=== PATIENT | female | born 1990 | race African-American/Black ===

== ENCOUNTER 2020-05-26 11:09 | Emergency (ER) | payer OTHER, SELFPAY ==
[2020-05-26 11:17] VITALS: BP 150/89; PULSE 92; RESP 16; TEMP 36.3; O2SAT 100
--- NOTE | 2020-05-26 11:30 | ED.DENTAL ---
HPI - Dental/Oral General Chief complaint: Dental/Oral Stated complaint: dental pain Time Seen by Provider: 05/26/20 11:19 Source: patient Mode of arrival: ambulatory Limitations: no limitations History of Present Illness HPI Narrative: This is a 29-year-old female that presents the emergency department for tooth pain x1 week. Reports lower molars on both sides that have been painful. Reports she does have an appointment to see a dentist but it is not until June 06. Denies fever, dysphagia, or dyspnea. MD Complaint: tooth pain Location: Tooth # (18 and 31) Related Data Allergies Allergy/AdvReac Type Severity Reaction Status Date / Time ciprofloxacin Allergy Unknown Hives Verified 05/26/20 11:21 Review of Systems Review of Systems: Narrative: CONSTITUTIONAL: Denies fever ENT: Reports dentalgia All systems reviewed & are unremarkable except as noted in HPI and below PMFSH Past Medical History Medical History (Updated 05/26/20 @ 11:33 by Patricia Fernández PA-C) Lupus Surgical History Surgical History (Updated 08/02/19 @ 16:47 by Shanta Cantu) No pertinent past surgical history Social History Social History (Updated 08/02/19 @ 16:47 by Shanta Cantu) Smoking status: Current every day smoker Alcohol intake: never Substance use: never Gender identity (if verbalized by the patient): Female Exam Narrative: Exam Narrative: GENERAL: Well-appearing, well-nourished, and in no acute distress. HEAD: Normocephalic, atraumatic. EYES: EOMI. ENT: Mucous membranes moist. Oropharynx without tonsillar hypertrophy exudate or other lesions. Bilateral TMs pearly bonilla non-bulging. Poor dentition. Tooth #18 and 31 tender to palpation with mild surrounding erythema and edema. No fluctuance to suggest abscess. NECK: Supple. No adenopathy or masses. CHEST: Clear to auscultation. No respiratory distress. No wheezes rales or rhonchi HEART: Regular rate and rhythm. No murmur heard. Normal peripheral pulses. EXTREMITIES: Normal range of motion. No edema. SKIN: Warm, dry, no rash. NEURO: No focal deficits. Alert and oriented x3. PSYCH: Normal mood and affect Course Vital Signs Vital signs: Vital Signs Temperature 97.4 F L 05/26/20 11:17 Pulse Rate 92 05/26/20 11:17 Respiratory Rate 16 05/26/20 11:17 Blood Pressure 150/89 H 05/26/20 11:17 Pulse Oximetry 100 05/26/20 11:17 Temperature 97.4 F L 05/26/20 11:17 Pulse Rate 92 05/26/20 11:17 Respiratory Rate 16 05/26/20 11:17 Blood Pressure 150/89 H 05/26/20 11:17 Pulse Oximetry 100 05/26/20 11:17 MDM - Dental/Oral MDM Narrative Medical decision making narrative: Patient presents to the emergency department for dental pain. She is afebrile and nontoxic-appearing. Mild redness and swelling surrounding the teeth, but no area of fluctuance to suggest abscess. Patient will be started on oral antibiotics. She is to follow-up with her dentist at her scheduled appointment. She was given warnings to return to the ER Critical Care Time Critical Care Time Critical Care Time: No Discharge Plan Discharge Clinical Impression: Toothache Patient Disposition: Home, Self-Care Condition: Stable Instructions: Antibiotic Form, Toothache (ED) Additional Instructions: Return to the Emergency Department if you experience fever >101, increasing swelling and redness of your tooth, or any other symptoms that are concerning to you Take antibiotic as prescribed. Tylenol or Ibuprofen as needed for pain. You can apply a dab of clove oil to a Qtip and apply to the tooth to help numb the area Follow up with your dentist Prescriptions: New amoxicillin-pot clavulanate 875-125 mg tablet 1 tablet PO Q12H 7 Days Qty: 14 RF: 0 Follow-up/Referrals: PHYSICIAN,[employer] INSPECTOR [Primary Care Provider] -
== END 2020-05-26 11:42 | disposition home or self-care (01) ==
PROVIDERS: Emergency Provider Emergency Medicine
DX: K08.89 Other specified disorders of teeth and supporting structures (principal); F17.200 Nicotine dependence, unspecified, uncomplicated
CPT/HCPCS: 99283

== ENCOUNTER 2021-02-12 05:34 | Observation (INO) | payer OTHER, SELFPAY ==
[2021-02-12] VITALS (12 sets, daily range): BP systolic 121–141; BP diastolic 51–90; PULSE 71–92; RESP 13–22; TEMP 36.3–37.1; O2SAT 98–100; BMI 25.2
--- NOTE | ~2021-02-12 | US_ITS ---
EXAMINATION: US pelvic complete w TV EXAM DATE: 02/13/2021 15:01 INDICATION: Abdominal, pelvic pain. Possible pelvic inflammatory disease. TECHNIQUE: Pelvic transabdominal and transvaginal sonogram was performed. There are multiple graysca le and Doppler images available for interpretation. Correlation is made to CT abdomen pelvis . FINDINGS: Uterus measures 6.8 x 4.0 x 4.2 cm, and is morphologically normal. Endometrial stripe zeeshan sures 4 mm, within normal limits. There is trace free pelvic fluid. Right adnexa: The ovary measures 3.8 x 1.6 x 1.6 cm and is morphologically normal. Ovarian vascular f low confirmed. Left adnexa: The ovary measures 3.4 x 1.6 x 1.9 cm and is morphologically normal. Ovarian vascular fl ow confirmed. IMPRESSION: 1. Unremarkable pelvic ultrasound exam. Reviewed, dictated and finalized at location A.
--- NOTE | ~2021-02-12 | CT_ITS ---
EXAMINATION: CT abdomen pelvis w con INDICATION: Abdominal pain TECHNIQUE: Computed tomographic images of the abdomen and pelvis were obtained after the administrati on of 100 cc of Omnipaque 350 intravenous contrast. The dose-length product (DLP) was 254.67 mGy-cm. Automated exposure control and iterative reconstruction technique were employed. COMPARISON: None available FINDINGS: The lung bases are clear. The heart size is normal. The liver, spleen, pancreas, gallbladde r, and adrenal glands are normal. The right kidney is unremarkable. There is 3 mm cyst of the left ki dney. No pathologically enlarged abdominal or pelvic lymph nodes are identified. There is no free int raperitoneal gas or evidence of bowel obstruction. The appendix is normal. IMPRESSION: 1. No CT correlate for the patient's symptoms. Reviewed, dictated and finalized at location A.
--- NOTE | 2021-02-12 05:57 | ED.GENADULT ---
HPI - General Adult General Chief complaint: Abdominal Pain <Preet Whitehead MD - Last Filed: 02/12/21 06:54> Stated complaint: N/v <Preet Whitehead MD - Last Filed: 02/12/21 06:54> Time Seen by Provider: 02/12/21 05:45 <Preet Whitehead MD - Last Filed: 02/12/21 06:54> History of Present Illness HPI narrative: Patient 30-year-old female presents the emergency department with chief complaint of abdominal pain. The patient reports that she had sudden onset pain throughout her abdomen reports that is not improved by anything reports she has had some nausea and vomiting describes the discomfort as a cramping-like sensation. Patient reports no prior surgical history to the abdomen reports that she has irregular periods and is currently on progesterone to help regulate her periods. <Preet Whitehead MD - Last Filed: 02/12/21 06:54> Related Data Home medications: Home Medications Medication Instructions Recorded Confirmed bupropion HCl mg PO 02/12/21 <Preet Whitehead MD - Last Filed: 02/12/21 06:54> Allergies/adverse reactions: Allergies Allergy/AdvReac Type Severity Reaction Status Date / Time ciprofloxacin Allergy Unknown Hives Verified 02/12/21 05:48 <Preet Whitehead MD - Last Filed: 02/12/21 06:54> Review of Systems Review of Systems: Narrative: A 10 system review of systems was completed on the patient and is negative except for what is stated in the HPI. Nursing and ancillary documentation was reviewed. <Preet Whitehead MD - Last Filed: 02/12/21 06:54> PMFSH Past Medical History Medical History: Medical History Lupus <Preet Whitehead MD - Last Filed: 02/12/21 06:54> Surgical History Surgical History: Surgical History No pertinent past surgical history <Preet Whitehead MD - Last Filed: 02/12/21 06:54> Social History Social History: Social History Smoking status: Current every day smoker Alcohol intake: never Substance use: never Gender identity (if verbalized by the patient): Female <Preet Whitehead MD - Last Filed: 02/12/21 06:54> Exam Narrative: Exam Narrative: GENERAL: Well-appearing, well-nourished, and in no acute distress. HEAD: Normocephalic, atraumatic. EYES: PERRLA and EOMI. ENT: Nares clear, no rhinorrhea or epistaxis. Mucous membranes moist. NECK: Supple. CHEST: Clear to auscultation. No respiratory distress. HEART: Regular rate and rhythm. No murmur heard. Normal peripheral pulses. ABDOMEN: Soft, diffusely tender to palpation, nondistended, normal active bowel sounds. EXTREMITIES: Normal range of motion. No edema. SKIN: Warm, dry, no rash. NEURO: No focal deficits. Alert and oriented x3. PSYCH: Normal mood and affect. <Preet Whitehead MD - Last Filed: 02/12/21 06:54> : External Female Exam: normal external appearance <Umesh Valladares MD - Last Filed: 02/12/21 12:12> Speculum Exam - Vagina: abnormal vaginal discharge (Thick and stringy bonilla/white) <Umesh Valladares MD - Last Filed: 02/12/21 12:12> Speculum Exam - Cervix: Abnormal cervical discharge present and nontender <Umesh Valladares MD - Last Filed: 02/12/21 12:12> Course Vital Signs Vital signs: Vital Signs Temperature 36.3 C L 02/12/21 05:39 Pulse Rate 92 02/12/21 05:39 Respiratory Rate 22 H 02/12/21 05:39 Blood Pressure 125/86 02/12/21 05:39 Pulse Oximetry 98 02/12/21 05:39 Temperature 36.3 C L 02/12/21 05:39 Pulse Rate 77 02/12/21 11:37 Respiratory Rate 17 02/12/21 11:37 Blood Pressure 128/76 02/12/21 11:37 Pulse Oximetry 99 02/12/21 11:37 <Preet Whitehead MD - Last Filed: 02/12/21 06:54> Vital Signs
[2021-02-12] MEDS: SODIUM CHLORIDE 0.9% IV 1,000 ML 999 ML IV CONT (06:08)
[2021-02-12] MEDS: ONDANSETRON INJ 4 MG/2 ML VIAL IV PUSH ×3 (06:08→16:09)
[2021-02-12] MEDS: MORPHINE SULFATE (*CRX) 4 MG/ML INJ IV PUSH (06:09)
[2021-02-12 06:21] LABS: Basophils Percent Auto 0.1 % (0.2-1.2); Eosinophils Absolute Auto 0.2 K/mm3 (0-0.3); Eosinophils Percent Auto 2.1 % (0-4.4); Hematocrit 42.7 % (37.0-47.0); Hemoglobin 14.6 g/dL (12.0-15.0); Immature Granulocyte Absolute 0.02 K/mm3 (0.00-0.031); Immature Granulocyte Percent A 0.3 % (0-0.5); Lymphocytes Absolute Auto 1.68 K/mm3 (0.9-3.2); Lymphocytes Percent Auto 22.3 % (18.3-44.2); Mean Corpuscular HGB Conc 34.2 g/dl (32-36); Mean Corpuscular Hemoglobin 30.8 pg (26-34); Mean Corpuscular Volume 90.1 fl (80-100); Mean Platelet Volume 9.2 fl (7.4-10.4); Monocytes Absolute Auto 0.4 K/mm3 (0.1-0.6); Monocytes Percent Auto 5.3 % (2.6-8.5); Neutrophils Absolute Auto 5.3 K/mm3 (1.3-6.7); Neutrophils Percent Auto 69.9 % (45.5-73.1); Platelet Count Result 281 k/mm3 (150-375); Red Blood Count 4.74 M/mm3 (4.2-5.4); Red Cell Distribution Width 12.6 % (11.5-14.5); White Blood Count 7.6 K/mm3 (4.5-10.0)
[2021-02-12 06:26] LABS: Add Urine Microscopic? YES; Appearance Urine Cloudy (Clear); Bacteria Urine 2+ /hpf; Bilirubin Urine Negative (Negative); Blood Urine Negative (Negative); Color Urine Yellow (Yellow); Glucose Urine UA Negative (Negative); Ketones Urine Negative (Negative); Leukocyte Esterase Ur Trace LEU/UL (Negative); Mucus Urine Moderate /lpf; Nitrate Urine Negative (Negative); Protein Urine 1+ mg/dL (Negative); Specific Grav Ur 1.012 (1.001-1.035); Squamous Epithelial Cell Urine Many /hpf (Few); Urobilinogen Urine Negative mg/dL (<2.0)
[2021-02-12 06:30] LABS: Alanine Aminotransferase 14 U/L (4-35); Albumin Level 4.5 g/dL (3.5-5.1); Alkaline Phosphatase 62 U/L (38-126); Anion Gap 11 mmol/L (8-16); Aspartate Amino Transferase 22 U/L (14-36); Bilirubin,Total 0.6 mg/dL (0.2-1.3); Blood Urea Nitrogen 10 mg/dL (7-17); Calcium 10.1 mg/dL (8.4-10.2); Carbon Dioxide 24 mmol/L (22-30); Chloride 104 mmol/L (98-107); Estimated CRCL calculation 81 ml/min; Estimated Glomerular Filt Rate > 60; Glucose 138 mg/dL (65-110); Lipase 116 U/L (23-300); Potassium 3.6 mmol/L (3.4-5.0); Sodium 139 mmol/L (137-145)
[2021-02-12] MEDS: HYDROmorphone HCL INJ (*CRX) 1 MG/ML SYR IV PUSH (06:48)
[2021-02-12] MEDS: DICYCLOMINE HCL INJ 20 MG/2 ML VIAL IM (06:51)
[2021-02-12] MEDS: PROCHLORPERAZINE EDISYLATE 10 MG/2 ML VIAL IV PUSH ×2 (07:32→10:56)
--- NOTE | 2021-02-12 09:58 | PC.NURSE ---
lg amt bile colored emesis after previous dose compazine iv
--- NOTE | 2021-02-12 14:20 | PC.NURSE ---
iv inadvertently dislodged by pt during sleep. pt restless during sleep. drsg applied. will attempt new site prior to transfer to floor
--- NOTE | 2021-02-12 15:14 | PM.IMHP ---
H&P: HPI History of Present Illness Date/Time: 02/12/21 15:14 this is a 30-year-old female patient who has a history of bipolar disorder. The patient came to the emergency room with complaint of abdominal pain as well as pelvic pain. Patient had intractable nausea and vomiting. Patient had been in the emergency room several hours and still continued to have nausea vomiting. The patient denied any fever chills. She has not had any previous medical history other than bipolar disease and no previous surgeries. The patient has been having some irregular periods and currently is on progesterone to help with her Menstrual cycle. No CT correlation for the patient's symptoms. ED physician performed a pelvic exam. The patient was started on IV fluids as well as a 1 time dose of Rocephin and doxycycline for pelvic inflammatory disease. her Trichomonas was negative and gonorrhea is pending. The patient was given morphine in the emergency room, IV fluids, Bentyl, Dilaudid, Compazine, Zofran Rocephin, doxycycline, and Compazine. The patient still continued to have nausea even with several medications for anti nausea. The patient is being admitted as observation status on the date of service of 02/12/2021. Chief Complaint: Intractable nausea vomiting Review of Systems Review of Systems: All systems reviewed & are unremarkable except as noted in HPI and below Constitutional: Constitutional: Reports as per HPI and Reports no additional constitutional complaints Eyes: Eyes: Reports as per HPI and Reports no additional eye complaints ENT: Reports system reviewed and no additional complaints, except as documented and Reports Normal hearing present Cardiovascular: Cardiovascular: Reports no additional cardiovascular complaints Respiratory: Respiratory: Reports no additional respiratory complaints and Reports no additional respiratory complaints Gastrointestinal: Gastrointestinal: Reports as per HPI and Reports no additional gastrointestinal complaints Musculoskeletal: Musculoskeletal: Reports no additional musculoskeletal complaints Integumentary/Breasts: Skin/Breast: Reports system reviewed and no additional complaints, except as docu and Reports as per HPI Neurologic: Reports system reviewed and no additional complaints, except as documented, Reports as per HPI and Reports Normal hearing present Psychiatric: Psychiatric: Reports no additional psychiatric complaints and Reports as per HPI Endocrine: Endocrine: Reports no additional endocrine complaints Hematologic/Lymphatic: Hematologic/Lymphatic: Reports no additional hematologic/lymphatic complaints Allergic/Immunologic: Allergic/Immunologic: Reports no additional allergic/immunologic complaints COUNTS INCLUDE 234 BEDS AT THE [facility] Past Medical History Medical History (Updated 02/12/21 @ 15:22 by Humaira Wagner NP) Bipolar disorder Surgical History Surgical History No pertinent past surgical history Family History Family History (Updated 02/12/21 @ 15:23 by Humaira Wagner NP) Mother Heart disease Liver disease Father Hypertension Social History Social History Smoking status: Current every day smoker Alcohol intake: never Substance use: never Gender identity (if verbalized by the patient): Female Meds Home Medications and Allergies Home Medications Medication Instructions Recorded Confirmed Type bupropion HCl mg PO 02/12/21 History Allergies Allergy/AdvReac Type Severity Reaction Status Date / Time ciprofloxacin Allergy Unknown Hives Verified 02/12/21 05:48 Vital Signs Vital Signs - 24 hr 02/12/21 05:39 02/12/21 06:14 02/12/21 06:16 Temperature 36.3 C L Pulse Rate 92 73 Respiratory Rate 22 H 19 Blood Pressure 125/86 136/83 121/51 L Pulse Oximetry 98 02/12/21 06:30 02/12/21 06:52 02/12/21 07:42 Temperature Pulse Rate
--- NOTE | 2021-02-12 15:18 | PC.NURSE ---
ed charge hand unable to start iv
--- NOTE | 2021-02-12 15:44 | ADMGEN ---
This patient, Mercy Walter, was admitted to Medical Room 253-01. Patient/family oriented to hospital policies and general routines including ID bracelet, bed and alarms, visiting hours, pain management, procedures, bathroom and other care routines, personal items, smoking policy, room service/diet, and visiting hours. Information on how to activate the Rapid Response Team has been discussed. Patient/Family are encouraged to report perceived risks to care and to ask questions if they do not understand what they are told or what they should do.
[2021-02-12] MEDS: LACTATED RINGERS 1,000 ML 125 ML IV CONT (15:47)
[2021-02-12] MEDS: NICOTINE (*PBKC) 14 MG PATCH 1 PATCH TRANSDERM (15:47)
[2021-02-12] MEDS: PANTOPRAZOLE SODIUM IV 40 MG VIAL IV PUSH (15:56)
[2021-02-12] MEDS: KETOROLAC 15 MG/ML VIAL (*BKC) IV PUSH (17:09)
[2021-02-12] MEDS: metroNIDAZOLE 500 MG/ISO 100ML 500 MG/100 ML BAG 100 MG IVPB (17:14)
[2021-02-12] MEDS: HYDROmorphone HCL INJ (*CRX) 1 MG/ML SYR 0.5 MG IV PUSH (18:34)
--- NOTE | 2021-02-12 22:37 | WPDPROCEDUR ---
Procedures Central Line Placement Right Femoral: Central Line Date: 02/12/21 Discussed w/ the patient/family/POA,the placement of a central venous catheter, including its clinical necessity/indication & associated potential risks, benifits and alternatives.: Yes The patient/family/POA understand(s) and acknowledge(s) the need to proceed with central venous catheter insertion as an important element of the patient's clinical management.: Yes Performed Emergently - Given emergent patient condition, temporal constraints may have precluded informed consent.: Yes Patient Position: supine Provider Prep: Max. sterile barrier precautions Local anesthesia used: lidocaine 1% Additional comments: I was able to get a great blood return but could not get the guidewire to advance. Unable to place central line at this time.
--- NOTE | 2021-02-12 22:39 | PM.EVENT ---
Event Note Event Note Event Note: We attempted several times to start IVs on the patient. I also attempted to started a central line to the right femoral area without success. I was able to get a blood return but could not get the guidewire to advance.
[2021-02-12] MEDS: ONDANSETRON HCL ODT 4 MG TABLET PO (23:15)
[2021-02-12] MEDS: LORazepam (*CRX) 0.5 MG TABLET PO (23:34)
[2021-02-12] MEDS: HYDROcodone/acetaminophen (*CRX) 5-325 MG TABLET 1 TAB PO (23:34)
[2021-02-12] MEDS: DOXYCYCLINE HYCLATE 100 MG TABLET PO (23:34)
[2021-02-13 05:39] VITALS: BP 150/87; PULSE 80; RESP 16; TEMP 36.9; O2SAT 100
[2021-02-13 05:40] LABS: Basophils Percent Auto 0.1 % (0.2-1.2); Hematocrit 37.7 % (37.0-47.0); Hemoglobin 12.9 g/dL (12.0-15.0); Immature Granulocyte Absolute 0.04 K/mm3 (0.00-0.031); Immature Granulocyte Percent A 0.4 % (0-0.5); Lymphocytes Absolute Auto 0.81 K/mm3 (0.9-3.2); Lymphocytes Percent Auto 7.6 % (18.3-44.2); Mean Corpuscular HGB Conc 34.2 g/dl (32-36); Mean Corpuscular Hemoglobin 30.9 pg (26-34); Mean Corpuscular Volume 90.4 fl (80-100); Mean Platelet Volume 9.6 fl (7.4-10.4); Monocytes Absolute Auto 0.4 K/mm3 (0.1-0.6); Monocytes Percent Auto 3.5 % (2.6-8.5); Neutrophils Absolute Auto 9.5 K/mm3 (1.3-6.7); Neutrophils Percent Auto 88.4 % (45.5-73.1); Platelet Count Result 284 k/mm3 (150-375); Red Blood Count 4.17 M/mm3 (4.2-5.4); Red Cell Distribution Width 12.7 % (11.5-14.5); White Blood Count 10.7 K/mm3 (4.5-10.0)
[2021-02-13 05:57] LABS: Alanine Aminotransferase 14 U/L (4-35); Albumin Level 4.5 g/dL (3.5-5.1); Alkaline Phosphatase 53 U/L (38-126); Anion Gap 12 mmol/L (8-16); Aspartate Amino Transferase 22 U/L (14-36); Bilirubin,Total 0.6 mg/dL (0.2-1.3); Blood Urea Nitrogen 15 mg/dL (7-17); Calcium 9.6 mg/dL (8.4-10.2); Carbon Dioxide 19 mmol/L (22-30); Chloride 107 mmol/L (98-107); Estimated CRCL calculation 91 ml/min; Estimated Glomerular Filt Rate > 60; Glucose 94 mg/dL (65-110); Magnesium 1.6 mg/dL (1.6-2.3); Potassium 3.7 mmol/L (3.4-5.0); Sodium 138 mmol/L (137-145)
[2021-02-13 05:58] LABS: Lactic Acid Reflex 1.2 mmol/L (0.7-2.1)
[2021-02-13] MEDS: metroNIDAZOLE 250 MG TABLET 500 MG PO ×3 (06:50→21:05)
--- NOTE | 2021-02-13 06:58 | PC.NURSE ---
multiple attempts were made by house servant, ultras sound and provider via central access to gain iv access. Pt has no iv access still and all medications were changed to po. Called vascular access nurse to notify her of the pt's status and possible need for access. day shift to follow up after speaking to provider
[2021-02-13] MEDS: HYDROcodone/acetaminophen (*CRX) 5-325 MG TABLET 1 TAB PO ×3 (09:31→19:30)
[2021-02-13] MEDS: NICOTINE (*PBKC) 14 MG PATCH 1 PATCH TRANSDERM (09:32)
[2021-02-13] MEDS: ENOXAPARIN 40 MG/0.4 ML SYRINGE SUB-Q (09:32)
[2021-02-13] MEDS: DOXYCYCLINE HYCLATE 100 MG TABLET PO ×2 (09:32→21:05)
[2021-02-13] MEDS: MAGNESIUM OXIDE 400 MG TABLET PO ×2 (11:32→16:20)
[2021-02-13 11:35] LABS: Thyroid Stimulating Hormone Reflex 0.128 uIU/mL (0.465-4.68)
--- NOTE | 2021-02-13 12:32 | PM.IMPN ---
Progress Note: A&P Assessment and Plan (1) PID (acute pelvic inflammatory disease): Code(s): N73.0 - Acute parametritis and pelvic cellulitis Status: Acute Assessment and Plan: Suspected based on her history of abdominal pain, abnormal vaginal discharge, cervical tenderness (per patient's report) on pelvic exam in the ED. Pelvic ultrasound ordered for further evaluation. Awaiting cervical culture results. Received 1 dose of Rocephin; continue oral doxycycline and flagyl as we have no IV access despite multiple attempts. (2) Intractable vomiting with nausea: Code(s): R11.2 - Nausea with vomiting, unspecified Status: Acute Assessment and Plan: Suspect secondary to above. Continue supportive care with antiemetics. Magnesium low, replace. (3) Bipolar disorder: Code(s): F31.9 - Bipolar disorder, unspecified Status: Chronic Assessment and Plan: Continue with bupropion Subjective Date/time seen: 02/13/21 1115 Interval history: Ms. Walter is a A4 30 yo F admitted with abdominal pain with intractable nausea/vomiting. Her pain is located across her suprapubic region and started sudden onset 2 days ago, rates it around 6/10 severity at this time. Nausea/vomiting sudden onset 2 days ago when this pain started. She describes foul-smelling thick yellow/green vaginal discharge over the last week or so, no recent sexual activity however she says she was recently treated with Flagyl for bacterial infection related to similar symptoms. She denies chest pain or shortness of breath. Nausea/vomiting improved today. Review of Systems Review of Systems: All systems reviewed & are unremarkable except as noted in HPI and below Exam Narrative: Exam Narrative: General: Well-developed female resting sitting up in bed in no acute distress. HEENT: Normocephalic, EOMI, oral mucosa moist. Cardiovascular: Rate and rhythm are regular. Respiratory: Lungs clear to auscultation bilaterally. Respirations even and non-labored. Abdomen: Soft, non-distended, bowel sounds present. Tenderness to palpation diffusely but worst across her suprapubic area without guarding. Extremities: Peripheral pulses intact. No edema or pain to palpation. Neuro: Awake and alert; answering questions appropriately. No focal neurological deficits. Speech is clear. Objective Data Vital Signs Vital Signs: Last Vital Signs Temp 98.5 F 02/13/21 05:39 Pulse 80 02/13/21 05:39 Resp 16 02/13/21 05:39 BP 150/87 H 02/13/21 05:39 Pulse Ox 100 02/13/21 05:39 Intake/Output Intake/Output: Intake & Output 02/10/21 02/11/21 02/12/21 02/13/21 23:59 23:59 23:59 23:59 Intake Total 1250 100 Output Total 700 Balance 550 100 Meds/Results Medications: Active Medications Generic Name Dose Route Start Last Admin Trade Name Freq PRN Reason Stop Dose Admin Hydrocodone Bitart/Acetaminophen 1 tab 02/12/21 22:34 02/13/21 09:31 Hydrocodone/Acetaminophen (*Crx) 5-325 Mg Tablet PO 1 tab Q4H PRN Administration Pain Rated 4-6 Dicyclomine HCl 20 mg 02/12/21 22:36 Dicyclomine Hcl 10 Mg Capsule PO QID PRN Abdominal Cramping Doxycycline Hyclate 100 mg 02/12/21 22:45 02/13/21 09:32 Doxycycline Hyclate 100 Mg Tablet PO 100 mg Q12HR JAMI Administration Enoxaparin Sodium 40 mg 02/13/21 09:00 02/13/21 09:32 Enoxaparin 40 Mg/0.4 Ml Syringe SUB-Q 40 mg DAILY JAMI Administration Lorazepam 0.5 mg 02/12/21 22:36 02/12/21 23:34 Lorazepam (*Crx) 0.5 Mg Tablet PO 0.5 mg Q6H PRN Administration Anxiety Magnesium Oxide 400 mg 02/13/21 11:00 02/13/21 11:32 Magnesium Oxide 400 Mg Tablet PO 400 mg 1100,1700 JAMI Administration Metronidazole 500 mg 02/13/21 06:00 02/13/21 06:50 Metronidazole 250 Mg Tablet PO
[2021-02-13] MEDS: ONDANSETRON HCL ODT 4 MG TABLET PO (12:36)
[2021-02-13] MEDS: DICYCLOMINE HCL 10 MG CAPSULE 20 MG PO ×2 (12:38→21:04)
[2021-02-13 13:20] LABS: Free T4 Free Thyroxine Reflex 1.15 ng/dL (0.78-2.19)
[2021-02-13 14:00] VITALS: BP 146/87; PULSE 96; RESP 20; TEMP 36.9; O2SAT 69
[2021-02-13 14:10] LABS: Total Triiodothyronine (T3) 0.89 NG/ML (0.97-1.69)
[2021-02-13] MEDS: SODIUM CHLORIDE 0.9% IV 1,000 ML 100 ML IV CONT (17:45)
[2021-02-13 20:50] VITALS: PULSE 76; RESP 18; TEMP 36.7; O2SAT 100
[2021-02-13] MEDS: LORazepam (*CRX) 0.5 MG TABLET PO (21:05)
[2021-02-14] MEDS: HYDROcodone/acetaminophen (*CRX) 5-325 MG TABLET 1 TAB PO ×2 (03:46→08:55)
[2021-02-14 04:58] VITALS: BP 141/79; PULSE 66; RESP 16; TEMP 36.7; O2SAT 100
[2021-02-14] MEDS: metroNIDAZOLE 250 MG TABLET 500 MG PO (05:32)
[2021-02-14] MEDS: ONDANSETRON HCL ODT 4 MG TABLET PO (05:32)
[2021-02-14 05:46] LABS: Alanine Aminotransferase 17 U/L (4-35); Albumin Level 4.3 g/dL (3.5-5.1); Alkaline Phosphatase 54 U/L (38-126); Anion Gap 11 mmol/L (8-16); Aspartate Amino Transferase 26 U/L (14-36); Bilirubin,Total 0.7 mg/dL (0.2-1.3); Blood Urea Nitrogen 15 mg/dL (7-17); Carbon Dioxide 23 mmol/L (22-30); Chloride 104 mmol/L (98-107); Estimated CRCL calculation 91 ml/min; Estimated Glomerular Filt Rate > 60; Glucose 92 mg/dL (65-110); Magnesium 1.8 mg/dL (1.6-2.3); Potassium 3.5 mmol/L (3.4-5.0); Sodium 138 mmol/L (137-145)
[2021-02-14 05:54] LABS: Basophils Percent Auto 0.3 % (0.2-1.2); Hematocrit 36.9 % (37.0-47.0); Hemoglobin 12.6 g/dL (12.0-15.0); Immature Granulocyte Absolute 0.02 K/mm3 (0.00-0.031); Immature Granulocyte Percent A 0.3 % (0-0.5); Lymphocytes Absolute Auto 1.47 K/mm3 (0.9-3.2); Lymphocytes Percent Auto 18.9 % (18.3-44.2); Mean Corpuscular HGB Conc 34.1 g/dl (32-36); Mean Corpuscular Hemoglobin 30.9 pg (26-34); Mean Corpuscular Volume 90.4 fl (80-100); Mean Platelet Volume 9.7 fl (7.4-10.4); Monocytes Absolute Auto 0.4 K/mm3 (0.1-0.6); Monocytes Percent Auto 5.5 % (2.6-8.5); Neutrophils Absolute Auto 5.9 K/mm3 (1.3-6.7); Platelet Count Result 303 k/mm3 (150-375); Red Blood Count 4.08 M/mm3 (4.2-5.4); Red Cell Distribution Width 12.5 % (11.5-14.5); White Blood Count 7.8 K/mm3 (4.5-10.0)
[2021-02-14] MEDS: DOXYCYCLINE HYCLATE 100 MG TABLET PO (08:54)
[2021-02-14] MEDS: ENOXAPARIN 40 MG/0.4 ML SYRINGE SUB-Q (08:54)
[2021-02-14] MEDS: NICOTINE (*PBKC) 14 MG PATCH 1 PATCH TRANSDERM (08:55)
--- NOTE | 2021-02-14 10:38 | PM.DS ---
DS: Admitting Diagnosis Admitting Diagnosis Admitting Diagnosis: intractable nausea and vomiting DS: Discharge Diagnosis Discharge Diagnosis (1) PID (acute pelvic inflammatory disease): Code(s): N73.0 - Acute parametritis and pelvic cellulitis Status: Acute Assessment and Plan: Date of Admission 02/12/21 Date of Discharge 02/14/21 Ms. Walter is a 30yo F who presented to the ED for evaluation of lower abdominal pain and intractable nausea and vomiting that began the day prior to arrival. She described abdominal yellowish bonilla vaginal discharge that was malodorous and noted she had recently been treated for a bacterial vaginal infection. She described taking flagyl but she is unsure if she was treated for trichomoniasis or bacterial vaginosis. CT abd/pel and pelvic ultrasound were unremarkable. ED provider performed pelvic speculum exam which is documented with abnormal cervical drainage and patient tells me this exam caused cervical motion tenderness. She is being treated for possible pelvic inflammatory disease given her reported recent infection which may have been partially treated since her genital culture from the ED pelvic exam returned with growth of normal urogenital elio. She was treated with IV rocephin, doxycycline and flagyl. She is discharged with oral doxycycline and flagyl. Her pain and vomiting were improved and she was feeling well enough for discharge. She was hemodynamically stable for discharge 02/14/21 with instructions to follow up with PCP. Suspected based on her history of abdominal pain, abnormal vaginal discharge, cervical tenderness (per patient's report) on pelvic exam in the ED. (2) Intractable vomiting with nausea: Code(s): R11.2 - Nausea with vomiting, unspecified Status: Acute Assessment and Plan: Suspect secondary to above. Continue supportive care with antiemetics. Magnesium low, replaced. (3) Bipolar disorder: Code(s): F31.9 - Bipolar disorder, unspecified Status: Chronic Assessment and Plan: Continue with bupropion DS: Summary Hospital Course Hospital Course: See above Time Spent with Patient Time attestation: Total time spent providing and/or coordinating discharge services: 35 minutes Exam Narrative: Exam Narrative: General: Well-developed female resting sitting up in bed in no acute distress. HEENT: Normocephalic, EOMI, oral mucosa moist. Cardiovascular: Rate and rhythm are regular. Respiratory: Lungs clear to auscultation bilaterally. Respirations even and non-labored. Abdomen: Soft, non-distended, bowel sounds present. Tenderness to palpation diffusely but worst across her suprapubic area without guarding. Extremities: Peripheral pulses intact. No edema or pain to palpation. Neuro: Awake and alert; answering questions appropriately. No focal neurological deficits. Speech is clear. DS: Data Data Completed and Pending Labs on day of discharge: Last Vital Signs Temp 98.0 F 02/14/21 04:58 Pulse 66 02/14/21 04:58 Resp 16 02/14/21 04:58 BP 141/79 H 02/14/21 04:58 Pulse Ox 100 02/14/21 04:58 ITS Impressions Abdomen/Pelvis CT 02/12/21 08:24 IMPRESSION: 1. No CT correlate for the patient's symptoms. Pelvic/Transvag US 02/13/21 15:10 IMPRESSION: 1. Unremarkable pelvic ultrasound exam. Laboratory Tests 02/14/21 05:12 02/14/21 05:12 Discharge Plan Discharge Attending physician on discharge: Nixon Oglesby Consulting providers: Johnson Agrawal ; Bhaskar Baker ; Humaira Wagner ; Jeovanny Flores Discharging Clinician: Marilyn Gill Anticipated Discharge Date/Time: 02/14/21 10:19 Patient Disposition: Home, Self-Care Activity: as tolerated Diet: as tolerated and bland Discharge Instru
[2021-02-14] MEDS: MAGNESIUM OXIDE 400 MG TABLET PO (11:05)
--- NOTE | 2021-02-16 12:08 | PC.NURSE ---
Genital cx growing normal elio.
--- NOTE | 2021-02-21 10:28 | PC.NURSE ---
Blood cx are negative
== END 2021-02-14 12:40 | disposition home or self-care (01) ==
LOC: ANHED 12:14 → ANH2MED 13:08
PROVIDERS: Emergency Medicine; Nurse Practitioner; Admitting Provider Internal Medicine Critical Care Medicine; Emergency Provider Emergency Medicine; Visit Provider Physician Assistant
DX: N73.0 Acute parametritis and pelvic cellulitis (principal); N72 Inflammatory disease of cervix uteri; R11.2 Nausea with vomiting, unspecified; F31.9 Bipolar disorder, unspecified
CPT/HCPCS: 36415; 74177; 76830; 76856; 80053; 81001; 81025; 83605; 83690; 83735; 84439; 84443; 84480; 85025; 87040; 87070; 87077; 87086; 87088; 87491; 87591; 87808; 96361; 96365; 96367; 96372; 96374; 96375; 96376; 99285; A9270; C1751; C9113; G0378; G0379; J0500; J0696; J0780; J1170; J1650; J1885; J2270; J2405; J7030; J7120; Q9967

== ENCOUNTER 2021-12-15 09:47 | Emergency (ER) | payer OTHER, SELFPAY ==
[2021-12-15] VITALS (9 sets, daily range): BP systolic 113–154; BP diastolic 78–99; PULSE 92–115; RESP 8–22; TEMP 36.6; O2SAT 98–100
--- NOTE | ~2021-12-15 | CT_ITS ---
EXAMINATION: CT abdomen pelvis w con DATE: 12/15/2021 10:56 INDICATION: Stomach cramps, nausea, vomiting and diarrhea TECHNIQUE: Computed tomography (CT) of the abdomen and pelvis was performed with 75 cc Omnipaque 300 intravenous contrast. The dose-length product was 224.95 mGy-cm. Automated exposure control and itera tive reconstruction technique were employed. COMPARISON: CT dated 02/12/2021. FINDINGS: Lung bases are unremarkable. Heart size is normal. No significant pleural or pericardial ef fusion. The liver, spleen, pancreas, adrenal glands and kidneys are unremarkable. Gallbladder is pres ent. There is focal fatty infiltration of the liver near the falciform ligament. Gallbladder is prese nt. Nonobstructive bowel gas pattern. No abnormal pelvic masses or fluid collections. There are small accessory splenules. No acute osseous abnormality. IMPRESSION: 1. No acute abdominal abnormality. Reviewed, dictated and finalized at location B.
[2021-12-15 10:16] LABS: Basophils Percent Auto 0.4 % (0.2-1.2); Eosinophils Percent Auto 0.4 % (0-4.4); Hematocrit 38.6 % (37.0-47.0); Immature Granulocyte Absolute 0.01 K/mm3 (0.00-0.031); Immature Granulocyte Percent A 0.1 % (0-0.5); Lymphocytes Absolute Auto 0.66 K/mm3 (0.9-3.2); Lymphocytes Percent Auto 8.7 % (18.3-44.2); Mean Corpuscular HGB Conc 33.7 g/dl (32-36); Mean Corpuscular Hemoglobin 30.4 pg (26-34); Mean Corpuscular Volume 90.2 fl (80-100); Monocytes Absolute Auto 0.3 K/mm3 (0.1-0.6); Monocytes Percent Auto 4.5 % (2.6-8.5); Neutrophils Absolute Auto 6.5 K/mm3 (1.3-6.7); Neutrophils Percent Auto 85.9 % (45.5-73.1); Platelet Count Result 395 k/mm3 (150-375); Red Blood Count 4.28 M/mm3 (4.2-5.4); White Blood Count 7.6 K/mm3 (4.5-10.0)
--- NOTE | 2021-12-15 10:20 | ED.ABDPAIN ---
HPI - Abdominal Pain General Chief Complaint: Abdominal Pain Stated Complaint: abd pain Time Seen by Provider: 12/15/21 10:18 Source: patient and RN notes reviewed Mode of arrival: ambulatory Limitations: no limitations History of Present Illness HPI narrative: Patient is a 31 years old -[place] female history of bipolar presents with diffuse abdominal pain across mid abdomen started 1 AM. Constant associated with nausea and vomiting. Patient denies having similar symptoms, fever, chills, chest pain, shortness of breath. A lot of stress lately, new job. Related Data Home Medications Medication Instructions Recorded Confirmed bupropion HCl mg PO 02/12/21 Allergies Allergy/AdvReac Type Severity Reaction Status Date / Time ciprofloxacin Allergy Unknown Hives Verified 12/15/21 10:20 sulfamethoxazole Allergy Hives Verified 12/15/21 10:20 [From Bactrim] trimethoprim [From Bactrim] Allergy Hives Verified 12/15/21 10:20 Review of Systems Review of Systems: All systems reviewed & are unremarkable except as noted in HPI and below PMFSH Past Medical History Medical History Bipolar disorder Surgical History Surgical History No pertinent past surgical history Family History Family History Mother Heart disease Liver disease Father Hypertension Social History Social History Smoking packs per day: 0.5 Smoking cigarettes per day: 10.0 Years smoked: 11 Smoking pack-years: 5.50 Smoking status: Current every day smoker Tobacco type: cigarettes Alcohol intake: never Substance use: never Spiritual care concerns: No Exam Narrative: General appearance: Well-developed, well-nourished, moaning, not cooperative to answer questions Skin: Normal color Head: Normocephalic, nontraumatic Eyes: Clear conjunctiva ENT: Oropharynx normal, ears normal, nose normal Neck: Supple, nontender Chest and respiratory: Airway patent, no respiratory distress, no accessory muscle use Heart: Regular rate/rhythm Abdomen: Soft, severe excruciating tenderness with light touch, no organomegaly, quiet bowel sounds Vascular: Normal peripheral pulses, normal capillary refill. Musculoskeletal: Normal range of motion, nontender back Neurologic: Alert and oriented ?3, [employer] is normal as tested, no gross motor deficit Course Course Emergency Course: On anxiety inducing abdominal pain is my concern Vital Signs Vital signs: Vital Signs Temperature 36.6 C 12/15/21 09:47 Pulse Rate 101 H 12/15/21 09:47 Respiratory Rate 18 12/15/21 09:47 Blood Pressure 113/78 12/15/21 09:47 Pulse Oximetry 100 12/15/21 09:47 Temperature 36.6 C 12/15/21 09:47 Pulse Rate 93 12/15/21 10:31 Respiratory Rate 8 L 12/15/21 10:31 Blood Pressure 133/94 H 12/15/21 10:30 Pulse Oximetry 100 12/15/21 10:31 MDM - Abdominal Pain Differential Diagnosis Differential diagnosis: Likely abdominal pain, acute appendicitis, calculus of kidney, constipation, pancreatitis and other (Anxiety-like symptoms) Lab Data Result diagrams: 12/15/21 10:09 12/15/21 10:09 Labs: Lab Results 12/15/21 12/15/21 12/15/21 Range/Units 10:09 10:09 10:19 WBC 7.6 (4.5-10.0) K/mm3 RBC 4.28 (4.2-5.4) M/mm3 Hgb 13.0 (12.0-15.0) g/dL Hct 38.6 (37.0-47.0) % MCV 90.2 (80-100) fl MCH 30.4 (26-34) pg MCHC 33.7 (32-36) g/dl RDW 13.0 (11.5-14.5) % Plt Count 395 H (150-375) k/mm3 MPV
[2021-12-15 10:33] LABS: Alanine Aminotransferase 11 U/L (6-35); Albumin Level 4.3 g/dL (3.5-5.1); Alkaline Phosphatase 83 U/L (38-126); Anion Gap 11 mmol/L (8-16); Aspartate Amino Transferase 21 U/L (14-36); Bilirubin,Total 0.7 mg/dL (0.2-1.3); Blood Urea Nitrogen 15 mg/dL (7-17); Calcium 9.3 mg/dL (8.4-10.2); Carbon Dioxide 27 mmol/L (22-30); Chloride 105 mmol/L (98-107); Estimated CRCL calculation 90 ml/min; Estimated Glomerular Filt Rate > 60; Glucose 110 mg/dL (65-110); Lipase 82 U/L (23-300); Sodium 143 mmol/L (137-145)
[2021-12-15] MEDS: HYDROmorphone HCL INJ (*CRX) 1 MG/ML SYR 0.5 MG IV PUSH (10:35)
[2021-12-15] MEDS: SODIUM CHLORIDE 0.9% IV 1,000 ML 999 ML IV CONT (10:35)
[2021-12-15] MEDS: ONDANSETRON INJ 4 MG/2 ML VIAL IV PUSH (10:36)
[2021-12-15 10:43] LABS: Appearance Urine Slightly Cloudy (Clear); Bilirubin Urine Negative (Negative); Blood Urine Negative (Negative); Glucose Urine UA Negative (Negative); Ketones Urine 3+ mg/dL (Negative); Leukocyte Esterase Ur Negative LEU/UL (Negative); Nitrate Urine Negative (Negative); Protein Urine Negative (Negative); Specific Grav Ur 1.015 (1.001-1.035); Urobilinogen Urine 0.2 mg/dL (<2.0)
[2021-12-15 10:46] LABS: Bacteria Urine Trace /hpf; Mucus Urine Few /lpf; Squamous Epithelial Cell Urine Many /hpf (Few)
[2021-12-15 10:49] LABS: Add Urine Microscopic? YES; Color Urine Dark Yellow (Yellow)
--- NOTE | 2021-12-15 11:55 | PC.NURSE ---
Had large green colored emesis on floor .
[2021-12-15] MEDS: diphenhydrAMINE HCl INJ 50 MG/ML VIAL IV PUSH (11:57)
[2021-12-15] MEDS: METOCLOPRAMIDE HCL INJ 10 MG/2 ML VIAL IV PUSH (11:57)
[2021-12-15] MEDS: LORazepam INJ (*CRX) 2 MG/ML VIAL 1 MG IV PUSH (11:58)
--- NOTE | 2021-12-15 13:43 | PC.NURSE ---
Sleeping. No further emesis.
== END 2021-12-15 14:50 | disposition home or self-care (01) ==
PROVIDERS: Emergency Provider Emergency Medicine
DX: R10.84 Generalized abdominal pain (principal); F41.9 Anxiety disorder, unspecified; E87.6 Hypokalemia; F31.9 Bipolar disorder, unspecified; F17.210 Nicotine dependence, cigarettes, uncomplicated
CPT/HCPCS: 36415; 74177; 80053; 81001; 81025; 83690; 85025; 96361; 96374; 96375; 99284; J1170; J1200; J2060; J2405; J2765; J7030; Q9967

== ENCOUNTER 2021-12-27 12:20 | Observation (INO) | payer OTHER, SELFPAY ==
[2021-12-27] VITALS (14 sets, daily range): BP systolic 118–145; BP diastolic 68–92; PULSE 70–102; RESP 16–18; TEMP 36.3–37.1; O2SAT 93–100; BMI 22.4
--- NOTE | ~2021-12-27 | US_ITS ---
EXAMINATION: US pelvic complete w TV DATE: 12/27/2021 16:00 INDICATION: Pelvic pain. TECHNIQUE: Multiple transabdominal and transvaginal sonographic images of the pelvis were obtained. COMPARISON: CT abdomen and pelvis 12/15/2021 FINDINGS: TRANSABDOMINAL ULTRASOUND: The uterus measures 8.1 x 4.1 x 4.4 cm. There is physiologic free fluid in the pelvis. TRANSVAGINAL ULTRASOUND: The endometrial complex measures 6 mm in thickness. The right ovary measures 4.3 x 2.1 x 3.3 cm. The left ovary measures 4.6 x 1.8 x 2.4 cm. There is normal vascular flow in the ovaries. IMPRESSION: 1. Normal pelvis. Reviewed, dictated and finalized at location A. IMPRESSION: 1. Normal pelvis.
--- NOTE | ~2021-12-27 | XR_ITS ---
EXAMINATION: XR chest 1V portable 12/27/2021 13:15 INDICATION: Chest pain. History of asthma. PROCEDURE: AP portable chest COMPARISON: No prior studies for comparison. FINDINGS: The lungs are clear. The cardiomediastinal silhouette is within normal limits. There are no pleural effusions. There is no pneumothorax suspected. IMPRESSION: 1: NO ACUTE CARDIOPULMONARY DISEASE. Reviewed, dictated and finalized at location A.
--- NOTE | 2021-12-27 12:47 | ECG_ITS ---
Measurements Intervals [place] Rate: 94 P: 80 OR: 166 QRS: 66 QRSD: 71 T: 37 QT: 354 QTc: 443 Interpretive Statements SINUS RHYTHM POSSIBLE LEFT ATRIAL ENLARGEMENT NONSPECIFIC T-WAVE ABNORMALITY NO PREVIOUS ECG AVAILABLE FOR COMPARISON Electronically Signed On 12-27-2021 15:35:09 CDT by Sebastian Gregory M.D.
--- NOTE | 2021-12-27 13:03 | ED.ABDPAIN ---
HPI - Abdominal Pain General Chief Complaint: Abdominal Pain Stated Complaint: N/V Time Seen by Provider: 12/27/21 12:39 Source: patient Mode of arrival: EMS Limitations: no limitations History of Present Illness HPI narrative: This is a 31 year old female with history of Bipolar who presents for evaluation of abdominal pain, nausea, vomiting. Patient states she ate some BBQ this morning at 4 am, and she developed nausea and vomiting 630 am. She reports multiple episodes of bilious emesis with constant lower abdominal pain. She describes her pain as feeling like she is giving . She denies fever, chills, diarrhea. She was given Zofran by EMS without any relief. She also reports chest pain now that is worse with touching. She has abnormal vaginal discharge as well. She also noted to triage that she stopped using fentanyl 2 weeks ago. MD elicited complaint: abdominal pain Onset (ago): hour(s) Pain Consistency: constant Severity: severe Quality: cramping Migration to: no migration Exacerbating factors: nothing Context: confirms possible food poisoning and confirms history of similar episodes Associated symptoms: nausea and vomiting Related Data Home Medications Medication Instructions Recorded Confirmed bupropion HCl 150 mg 24 hr tablet, 150 mg PO DAILY 02/12/21 12/27/21 extended release dextroamphetamine-amphetamine 5 mg 5 mg PO BID 12/27/21 12/27/21 tablet quetiapine 100 mg tablet 100 mg PO HS 12/27/21 12/27/21 Allergies Allergy/AdvReac Type Severity Reaction Status Date / Time ciprofloxacin Allergy Unknown Hives Verified 12/15/21 10:20 sulfamethoxazole Allergy Hives Verified 12/15/21 10:20 [From Bactrim] trimethoprim [From Bactrim] Allergy Hives Verified 12/15/21 10:20 Review of Systems Review of Systems: All systems reviewed & are unremarkable except as noted in HPI and below Constitutional: Constitutional: Denies chills and Denies fatigue Cardiovascular: Cardiovascular: Reports chest pain and Denies radiating jaw, neck or arm pain Gastrointestinal: Gastrointestinal: Reports abdominal pain, Reports nausea and Reports vomiting Genitourinary: Genitourinary: Reports pelvic pain and Reports vaginal discharge PMFSH Past Medical History Medical History Bipolar disorder Surgical History Surgical History No pertinent past surgical history Family History Family History Mother Heart disease Liver disease Father Hypertension Social History Social History Smoking packs per day: 0.5 Smoking cigarettes per day: 10.0 Years smoked: 11 Smoking pack-years: 5.50 Smoking status: Current every day smoker Tobacco type: cigarettes Alcohol intake: never Substance use: never Spiritual care concerns: No Exam Const: General: alert Orientation/consciousness: patient oriented x3 Other: ill appearing holding emesis bag HENMT: Head: normal to inspection Face and sinus: normal facial exam Mouth: Yes Normal oral and palatal mucosa present Throat: posterior oropharynx normal Eyes: Conjunctivae: conjunctivae normal Pupils: Equal, round and reactive pupils present EOM: EOMs intact bilaterally Chest: Chest palpation & inspection: normal inspection of the chest Resp: Effort & Inspection: normal respiratory effort Cardio: Rate: tachycardic Rhythm: regular rhythm Heart sounds: no murmurs GI: GI Palp: Yes Soft to palpation, Yes Tenderness to palpation present (GI), No Guarding due to palpation present (GI), No Rigid due to palpation and No Hernia present : Speculum Exam - Vagina: abnormal vaginal discharge white and yellow Speculum Exam - Cervix: Cervical os closed Bimanual exam- vagina & uterus: no cervical motion tenderness Skin: Ge
[2021-12-27] MEDS: KETOROLAC 30 MG/ML VIAL (*BKC) IV PUSH (13:04)
[2021-12-27] MEDS: LACTATED RINGERS 1,000 ML 999 ML IV CONT ×2 (13:05→14:03)
[2021-12-27] MEDS: PROMETHAZINE HCL 25 MG/ML AMPUL 12.5 MG IV PUSH ×2 (13:05→16:01)
[2021-12-27 13:07] LABS: Basophils Percent Auto 0.3 % (0.2-1.2); Eosinophils Percent Auto 0.3 % (0-4.4); Hematocrit 38.5 % (37.0-47.0); Hemoglobin 12.6 g/dL (12.0-15.0); Immature Granulocyte Absolute 0.02 K/mm3 (0.00-0.031); Immature Granulocyte Percent A 0.3 % (0-0.5); Lymphocytes Absolute Auto 0.92 K/mm3 (0.9-3.2); Lymphocytes Percent Auto 12.7 % (18.3-44.2); Mean Corpuscular HGB Conc 32.7 g/dl (32-36); Mean Corpuscular Hemoglobin 30.4 pg (26-34); Mean Corpuscular Volume 92.8 fl (80-100); Mean Platelet Volume 9.6 fl (7.4-10.4); Monocytes Absolute Auto 0.3 K/mm3 (0.1-0.6); Monocytes Percent Auto 3.9 % (2.6-8.5); Neutrophils Percent Auto 82.5 % (45.5-73.1); Platelet Count Result 356 k/mm3 (150-375); Red Blood Count 4.15 M/mm3 (4.2-5.4); Red Cell Distribution Width 14.8 % (11.5-14.5); White Blood Count 7.2 K/mm3 (4.5-10.0)
[2021-12-27 13:17] LABS: Alanine Aminotransferase 11 U/L (6-35); Albumin Level 4.3 g/dL (3.5-5.1); Alkaline Phosphatase 65 U/L (38-126); Anion Gap 8 mmol/L (8-16); Aspartate Amino Transferase 18 U/L (14-36); Bilirubin,Total 0.4 mg/dL (0.2-1.3); Blood Urea Nitrogen 12 mg/dL (7-17); Calcium 8.8 mg/dL (8.4-10.2); Carbon Dioxide 23 mmol/L (22-30); Chloride 109 mmol/L (98-107); Estimated Glomerular Filt Rate > 60; Glucose 106 mg/dL (65-110); Lipase 131 U/L (23-300); Potassium 3.3 mmol/L (3.4-5.0); Sodium 140 mmol/L (137-145)
[2021-12-27] MEDS: HALOPERIDOL LACTATE 5 MG/ML VIAL IM (14:03)
--- NOTE | 2021-12-27 14:09 | PC.NURSE ---
PELVIC EXAM SET UP, PT INFORMED ERP THERE IS SOMETHING WRONG DOWN THERE. PT STATES IT FEELS LIKE I'M HAVING A BABY. PT REPORTS SHE STILLS FEELS NAUSEATED AND NOT ABLE TO VOID AT THIS TIME.
[2021-12-27 14:52] LABS: Appearance Urine Cloudy (Clear); Bilirubin Urine Negative (Negative); Blood Urine Negative (Negative); Color Urine Yellow (Yellow); Glucose Urine UA Negative (Negative); Ketones Urine Negative (Negative); Leukocyte Esterase Ur 1+ LEU/UL (Negative); Nitrate Urine Negative (Negative); Protein Urine Negative (Negative); Urobilinogen Urine 0.2 mg/dL (<2.0); pH Urine 8.5 (5.0-9.0)
[2021-12-27 15:03] LABS: Amorphous Sediment Urine Few; Bacteria Urine Trace /hpf; Mucus Urine Rare /lpf; Squamous Epithelial Cell Urine Many /hpf (Few)
[2021-12-27 15:05] LABS: Add Urine Microscopic? YES
[2021-12-27] MEDS: cefTRIAXone 1 GM VIAL 0.5 GM IM (16:00)
[2021-12-27] MEDS: LIDOCAINE HCL 1% PF 30 ML VIAL (16:05)
--- NOTE | 2021-12-27 16:16 | PC.NURSE ---
PT HAD EMESIS AFTER FLAGYL GIVEN, PILLS NOTED IN EMESIS
[2021-12-27] MEDS: metroNIDAZOLE 500 MG/ISO 100ML 500 MG/100 ML BAG 100 MG IVPB (18:31)
--- NOTE | 2021-12-27 19:58 | PM.IMHP ---
H&P: HPI History of Present Illness Date/Time: 12/27/21 19:58 Chief Complaint: Nausea and vomiting. Narrative: This is a 31-year-old female with past medical history significant for opiate dependence and substance abuse of fentanyl which she has quit since December 14 however she has been having intractable nausea and vomiting for several days and epigastric abdominal pain. Patient denies any fevers, rigors, chills, any cough, sputum production, no diarrhea, patient unable to eat anything. Preliminary workup has been essentially nonrevealing. Patient has been admitted for further evaluation management and treatment. Review of Systems Review of Systems: Intractable nausea and vomiting and epigastric abdominal pain. Constitutional: Constitutional: Denies chills, Denies fever(s) and Denies night sweats Eyes: Eyes: Denies change in vision ENT: Denies dysphagia, Denies vertigo, Denies dizziness, Denies nasal congestion, Denies nasal discharge and Denies odynophagia Cardiovascular: Cardiovascular: Denies pedal edema, Denies irregular heart rhythm, Denies lightheadedness, Denies radiating jaw, neck or arm pain, Denies palpitations, Denies dyspnea and Denies dyspnea on exertion Respiratory: Respiratory: Denies cough and Denies dyspnea Gastrointestinal: Gastrointestinal: Reports abdominal pain (Epigastric), Denies hematochezia, Denies coffee ground emesis, Denies dyspepsia, Denies heartburn, Denies diarrhea, Reports nausea and Reports vomiting Genitourinary: Genitourinary: Denies dysuria Musculoskeletal: Musculoskeletal: Denies back pain and Denies arthralgias Integumentary/Breasts: Skin/Breast: Denies rash Neurologic: Denies focal weakness and Denies Sensory deficit (Neuro) Psychiatric: Psychiatric: Reports no additional psychiatric complaints and Reports as per HPI Endocrine: Endocrine: Denies cold intolerance, Denies fatigue, Denies flushing, Denies heat intolerance, Denies polyphagia, Denies polydipsia and Denies palpitations Hematologic/Lymphatic: Hematologic/Lymphatic: Reports no additional hematologic/lymphatic complaints and Reports as per HPI Allergic/Immunologic: Allergic/Immunologic: Reports no additional allergic/immunologic complaints and Reports as per HPI PMFSH Past Medical History Medical History Bipolar disorder Surgical History Surgical History No pertinent past surgical history Family History Family History Mother Heart disease Liver disease Father Hypertension Social History Social History (Updated 12/28/21 @ 00:22 by Leelee Grove, ANTOLIN) Smoking packs per day: 0.5 Smoking cigarettes per day: 10.0 Years smoked: 11 Smoking pack-years: 5.50 Smoking status: Current every day smoker Tobacco type: cigarettes Alcohol intake: never Substance use: former Substance use type: painkillers Last use: 14 days ago Gender identity (if verbalized by the patient): Female Sexual Orientation (if Verbalized by the Patient): Straight or Heterosexual Spiritual care concerns: No Meds Home Medications and Allergies Home Medications Medication Instructions Recorded Confirmed Type bupropion HCl 150 mg 24 hr tablet, 150 mg PO DAILY 02/12/21 12/27/21 History extended release dicyclomine 20 mg tablet 20 mg PO QID #20 tabs 12/15/21 12/27/21 Rx dextroamphetamine-amphetamine 5 mg 5 mg PO BID 12/27/21 12/27/21 History tablet quetiapine 100 mg tablet 100 mg PO HS 12/27/21 12/27/21 History Allergies Allergy/AdvReac Type Severity Reaction Status Date / Time ciprofloxacin Allergy Unknown Hives Verified 12/15/21 10:20 sulfamethoxazole Allergy Hives Verified 12/15/21 10:20 [From Bactrim] trimethoprim [From Bactrim] Allergy Hives Verified 12/15/21 10:20 Vital Signs Vital Signs - 24 hr 12/27/21 12:37
[2021-12-27] MEDS: DOXYCYCLINE 100 MG/NS 100 ML 100 MG/100 ML BAG IVPB (20:53)
[2021-12-27] MEDS: SODIUM CHLORIDE 0.9% IV 1,000 ML 125 ML IV CONT (20:53)
[2021-12-27 21:22] LABS: SARS-CoV-2 RNA PCR Negative
--- NOTE | 2021-12-27 23:05 | ADMGEN ---
This patient, Mrecy Walter, was admitted to [facility] Surg Room 301-01. Patient/family oriented to hospital policies and general routines including ID bracelet, bed and alarms, visiting hours, pain management, procedures, bathroom and other care routines, personal items, smoking policy, room service/diet, and visiting hours. Information on how to activate the Rapid Response Team has been discussed. Patient/Family are encouraged to report perceived risks to care and to ask questions if they do not understand what they are told or what they should do.
[2021-12-28 05:06] VITALS: BP 152/89; PULSE 105; RESP 18; TEMP 36.7; O2SAT 100
[2021-12-28 06:44] LABS: Basophils Percent Auto 0.1 % (0.2-1.2); Hematocrit 37.3 % (37.0-47.0); Hemoglobin 12.4 g/dL (12.0-15.0); Immature Granulocyte Absolute 0.03 K/mm3 (0.00-0.031); Immature Granulocyte Percent A 0.4 % (0-0.5); Lymphocytes Absolute Auto 0.86 K/mm3 (0.9-3.2); Lymphocytes Percent Auto 11.2 % (18.3-44.2); Mean Corpuscular HGB Conc 33.2 g/dl (32-36); Mean Corpuscular Hemoglobin 30.5 pg (26-34); Mean Corpuscular Volume 91.6 fl (80-100); Mean Platelet Volume 9.8 fl (7.4-10.4); Monocytes Absolute Auto 0.4 K/mm3 (0.1-0.6); Monocytes Percent Auto 4.6 % (2.6-8.5); Neutrophils Absolute Auto 6.4 K/mm3 (1.3-6.7); Neutrophils Percent Auto 83.7 % (45.5-73.1); Platelet Count Result 361 k/mm3 (150-375); Red Blood Count 4.07 M/mm3 (4.2-5.4); Red Cell Distribution Width 14.7 % (11.5-14.5); White Blood Count 7.7 K/mm3 (4.5-10.0)
[2021-12-28 06:58] LABS: Alanine Aminotransferase 11 U/L (6-35); Albumin Level 4.1 g/dL (3.5-5.1); Alkaline Phosphatase 65 U/L (38-126); Anion Gap 9 mmol/L (8-16); Aspartate Amino Transferase 26 U/L (14-36); Bilirubin,Total 0.6 mg/dL (0.2-1.3); Blood Urea Nitrogen 9 mg/dL (7-17); Calcium 8.9 mg/dL (8.4-10.2); Carbon Dioxide 21 mmol/L (22-30); Chloride 105 mmol/L (98-107); Estimated CRCL calculation 122 ml/min; Estimated Glomerular Filt Rate > 60; Glucose 93 mg/dL (65-110); Potassium 3.2 mmol/L (3.4-5.0); Sodium 135 mmol/L (137-145)
[2021-12-28] MEDS: POTASSIUM CHLORIDE 20 MEQ TABLET 40 MEQ PO (08:34)
[2021-12-28] MEDS: ENOXAPARIN 40 MG/0.4 ML SYRINGE SUB-Q (08:35)
[2021-12-28] MEDS: DOXYCYCLINE 100 MG/NS 100 ML 100 MG/100 ML BAG IVPB (08:37)
[2021-12-28] MEDS: buPROPion HCL XL (24 HR) 150 MG TABCR PO (09:28)
[2021-12-28] MEDS: NICOTINE (*PBKC) 14 MG PATCH 1 PATCH TRANSDERM (10:04)
--- NOTE | 2021-12-28 10:36 | PC.NURSE ---
Patient notified of risks of leaving AMA. [ Jaelyn DANIELSON ] notified. Follow up instructions given to patient. Patient signed AMA form.
--- NOTE | 2021-12-28 11:54 | PM.DS ---
DS: Admitting Diagnosis Discharge Date 12/28/21 Admitting Diagnosis N/V/abd pain DS: Discharge Diagnosis Discharge Diagnosis (1) Intractable vomiting with nausea: Code(s): R11.2 - Nausea with vomiting, unspecified Status: Acute (2) PID (acute pelvic inflammatory disease): Code(s): N73.0 - Acute parametritis and pelvic cellulitis Status: Acute (3) Infection due to trichomonas (vaginalis): Code(s): A59.9 - Trichomoniasis, unspecified Status: Acute (4) Bipolar disorder: Code(s): F31.9 - Bipolar disorder, unspecified Status: Chronic (5) Fentanyl dependence: Code(s): F11.20 - Opioid dependence, uncomplicated Status: Acute Plan Patient left AMA prior to my arrival this morning. Informed of risks of leaving by RN, completed AMA paperwork. DS: Summary Hospital Course Reason for hospitalization: ?31 year old female with history of Bipolar who presents for evaluation of abdominal pain, nausea, vomiting. Please see HPI for further details. Hospital Course: Pt was admitted yesterday and signed out AMA prior to my arrival during rounds this morning. Time Spent with Patient Time attestation: Total time spent providing and/or coordinating discharge services: Exam Narrative: N/A - did not see the patient DS: Data Data Completed and Pending Labs on day of discharge: Labs from last 24 hours 12/28/21 12/28/21 12/27/21 05:51 05:51 19:45 WBC 7.7 RBC 4.07 L Hgb 12.4 Hct 37.3 MCV 91.6 MCH 30.5 MCHC 33.2 RDW 14.7 H Plt Count 361 MPV 9.8 Immature Gran % (Auto) 0.4 Neut % (Auto) 83.7 H Lymph % (Auto) 11.2 L Arthur % (Auto) 4.6 Eos % (Auto) 0.0 Baso % (Auto) 0.1 L Lymph # (Auto) 0.86 L Arthur # (Auto) 0.4 Eos # (Auto) 0.0 Baso # (Auto) 0.0 Abs Immat Gran (auto) 0.03 Absolute Neuts (auto) 6.4 Absolute Nucleated RBC 0.0 Nucleated RBC % 0.0 Sodium 135 L Potassium 3.2 L Chloride 105 Carbon Dioxide 21 L Anion Gap 9 BUN 9 Creatinine 0.50 L Estim Creat Clear Calc 122 Estimated GFR > 60 Glucose 93 Calcium 8.9 Total Bilirubin 0.6 AST 26 ALT 11 Alkaline Phosphatase 65 Total Protein 7.0 Albumin 4.1 Lipase Urine Color Urine Appearance Urine pH Ur Specific [place] Urine Protein Urine Glucose (UA) Urine Ketones Ur Blood (Man) Urine Nitrate Urine Bilirubin Urine Urobilinogen Leukocyte Esterase Rfl Urine RBC Urine WBC Ur Squamous Epith Cells Amorphous Sediment Urine Bacteria Urine Mucus C.trachomatis RNA (TMA) N.gonorrhoeae RNA (TMA) SARS-CoV-2 RNA (RT-PCR) Negative Trichomonas Direct ID 12/27/21 12/27/21 12/27/21 14:39 14:39 14:28 WBC RBC Hgb Hct MCV MCH MCHC RDW Plt Count MPV Immature Gran % (Auto) Neut % (Auto) Lymph % (Auto) Arthur % (Auto) Eos % (Auto) Baso % (Auto) Lymph # (Auto) Arthur # (Auto) Eos # (Auto) Baso # (Auto) Abs Immat Gran (auto) Absolute Neuts (auto) Absolute Nucleated RBC Nucleated RBC % Sodium Potassium Chloride Carbon Dioxide Anion Gap BUN Creatinine Estim Creat Clear Calc Estimated GFR Glucose Calcium Total Bilirubin AST ALT Alkaline Phosphatase Total Protein Albumin Lipase Urine Color Yellow Urine Appearance Cloudy H Urine pH 8.5 Ur Specific [place] 1.020 Urine Protein Negative Urine Glucose (UA) Negative Urine Ketones Negative Ur Blood (Man) Negative Urine Nitrate Negative Urine Bilirubin Negative Urine Urobilinogen 0.2 Leukocyte Esterase Rfl 1+ H Urine RBC 11-20 H Urine WBC 10-15 H Ur Squamous Epith Cells Many H Amorphous Sediment Few H Urine Bacteria Trace Urine Mucus Rare C.trachomatis RNA
== END 2021-12-28 10:25 | disposition left against medical advice (07) ==
LOC: ANHED 18:03 → ANH3MEDSUR 19:33
PROVIDERS: Emergency Medicine; Admitting Provider Internal Medicine; Emergency Provider General Practice; Visit Provider Physician Assistant
DX: R11.2 Nausea with vomiting, unspecified (principal); R10.9 Unspecified abdominal pain; N73.0 Acute parametritis and pelvic cellulitis; A59.9 Trichomoniasis, unspecified; F31.9 Bipolar disorder, unspecified; F17.210 Nicotine dependence, cigarettes, uncomplicated; F11.21 Opioid dependence, in remission; Z20.822 Contact with and (suspected) exposure to COVID-19
CPT/HCPCS: 36415; 71045; 76830; 76856; 80053; 81001; 81025; 83690; 85025; 87070; 87086; 87491; 87591; 87808; 93005; 96361; 96365; 96366; 96367; 96372; 96375; 96376; 99285; A9270; C9803; G0378; G0379; J0131; J0696; J1630; J1650; J1885; J2550; J7030; J7120; U0003; U0005

== ENCOUNTER 2022-01-12 13:06 | Observation (INO) | payer OTHER, SELFPAY ==
[2022-01-12] VITALS (13 sets, daily range): BP systolic 135–154; BP diastolic 73–110; PULSE 78–102; RESP 12–24; TEMP 36.5–36.8; O2SAT 97–100
--- NOTE | ~2022-01-12 | CT_ITS ---
EXAMINATION: CT abdomen pelvis wo con DATE: 01/12/2022 14:25 INDICATION: Abdominal pain. Vomiting. TECHNIQUE: Computed tomography (CT) of the abdomen and pelvis was performed without intravenous contr ast. Automated exposure control and iterative reconstruction technique were employed. The dose-length product was 197.48 mGy-cm. COMPARISON: CT abdomen and pelvis 12/15/2021 FINDINGS: The visualized portions of the lung bases are clear without pneumonia or pleural effusion. The heart size is normal. No pericardial effusion. The liver demonstrates focal steatosis adjacent to the falciform ligament. The gallbladder, spleen, pancreas, adrenal glands, and left kidney are eliza l. There is a 2 mm stone in right kidney. There are no dilated loops of bowel. The appendix is normal . There are no pathologically enlarged lymph nodes. There is no free intraperitoneal fluid. There is mild lumbar spondylosis. IMPRESSION: 1. 2 mm nonobstructing right kidney stone. Reviewed, dictated and finalized at location B.
--- NOTE | ~2022-01-12 | XR_ITS ---
EXAMINATION: XR chest 2V DATE: 01/12/2022 13:55 INDICATION: Chest pain. TECHNIQUE: Frontal and lateral views of the chest were obtained. COMPARISON: Chest single view 12/27/2021 FINDINGS: The chest demonstrates clear lungs without pneumonia, pleural effusion, or pneumothorax. Th e heart size is normal. IMPRESSION: 1. No acute cardiopulmonary disease. Reviewed, dictated and finalized at location B.
--- NOTE | 2022-01-12 13:21 | ECG_ITS ---
Measurements Intervals [place] Rate: 106 P: 82 WV: 138 QRS: 83 QRSD: 70 T: -34 QT: 328 QTc: 437 Interpretive Statements SINUS TACHYCARDIA POSSIBLE RIGHT ATRIAL ENLARGEMENT [0.25mV P WAVE] MODERATE T-WAVE ABNORMALITY, CONSIDER INFERIOR ISCHEMIA [-0.1+ mV T WAVE IN II/aVF] COMPARED TO ECG 12/27/2021 14:46:30 HEART RATE IS INCREASED AND INFERIOR T-WAVES ARE INVERTED Electronically Signed On 01-12-2022 14:45:42 CDT by Guevara Santana M.D.
[2022-01-12 13:52] LABS: Basophils Percent Auto 0.2 % (0.2-1.2); Hematocrit 40.5 % (37.0-47.0); Hemoglobin 13.1 g/dL (12.0-15.0); Immature Granulocyte Absolute 0.01 K/mm3 (0.00-0.031); Immature Granulocyte Percent A 0.2 % (0-0.5); Lymphocytes Absolute Auto 0.52 K/mm3 (0.9-3.2); Lymphocytes Percent Auto 12.1 % (18.3-44.2); Mean Corpuscular HGB Conc 32.3 g/dl (32-36); Mean Corpuscular Hemoglobin 30.6 pg (26-34); Mean Corpuscular Volume 94.6 fl (80-100); Mean Platelet Volume 9.2 fl (7.4-10.4); Monocytes Absolute Auto 0.1 K/mm3 (0.1-0.6); Monocytes Percent Auto 2.6 % (2.6-8.5); Neutrophils Absolute Auto 3.6 K/mm3 (1.3-6.7); Neutrophils Percent Auto 84.9 % (45.5-73.1); Platelet Count Result 423 k/mm3 (150-375); Red Blood Count 4.28 M/mm3 (4.2-5.4); Red Cell Distribution Width 15.3 % (11.5-14.5); White Blood Count 4.3 K/mm3 (4.5-10.0)
--- NOTE | 2022-01-12 14:03 | ED.NAVMDI ---
HPI - Nausea/Vomiting/Diarrhea General Chief complaint: Nausea/Vomiting/Diarrhea Stated complaint: abd pain Time Seen by Provider: 01/12/22 13:53 Source: RN notes reviewed History of Present Illness HPI Narrative: Patient presents emergency room from home for nausea vomiting diarrhea. Patient states symptoms began 1 day ago. States has had numerous episodes of nausea vomiting as well as diarrhea. States associate with abdominal pain in the mid abdomen described as sharp and stabbing in nature she denies any fevers or chills chest pain shortness breath or any other symptoms. States she not taking medication for the symptoms at home Related Data Home Medications Medication Instructions Recorded Confirmed bupropion HCl 150 mg 24 hr tablet, 150 mg PO DAILY 02/12/21 12/27/21 extended release dextroamphetamine-amphetamine 5 mg 5 mg PO BID 12/27/21 12/27/21 tablet quetiapine 100 mg tablet 100 mg PO HS 12/27/21 12/27/21 Allergies Allergy/AdvReac Type Severity Reaction Status Date / Time ciprofloxacin Allergy Unknown Hives Verified 12/15/21 10:20 sulfamethoxazole Allergy Hives Verified 12/15/21 10:20 [From Bactrim] trimethoprim [From Bactrim] Allergy Hives Verified 12/15/21 10:20 Review of Systems Review of Systems: Gen.: Denies fevers or chills ENT: Denies congestion Respiratory: Denies shortness of breath or cough CV: Denies chest pain or palpitations GI: See HPI denies burning, urgency, frequency or hematuria Musculoskeletal: Denies back pain or muscle pain Neuro: Denies numbness, tingling, weakness or focal weakness Skin: Denies rash Except as documented, all other systems reviewed and negative [facility] Past Medical History Medical History Bipolar disorder Surgical History Surgical History No pertinent past surgical history Family History Family History Mother Heart disease Liver disease Father Hypertension Social History Social History Smoking packs per day: 0.5 Smoking cigarettes per day: 10.0 Years smoked: 11 Smoking pack-years: 5.50 Smoking status: Current every day smoker Tobacco type: cigarettes Alcohol intake: never Substance use: former Substance use type: painkillers Last use: 14 days ago Gender identity (if verbalized by the patient): Female Sexual Orientation (if Verbalized by the Patient): Straight or Heterosexual Spiritual care concerns: No Exam Narrative: APPEARANCE: No acute distress, nontoxic, resting in bed HEENT: Normocephalic, atraumatic, OMM RESPIRATORY: No respiratory distress, clear to auscultation bilaterally with no rhonchi wheezing or rales CARDIOVASCULAR: RRR s murmur ABDOMINAL: Soft nondistended diffusely tender palpation no rebound or guarding MUSCULOSKELETAl: Moves all extremities. No clubbing, cyanosis or edema. NEURO: Awake and alert. Following commands, speech normal, no focal deficits SKIN:: Warm, dry. Normal Color PSYCHIATRIC: Normal affect/mood Course Course Emergency Course: Reviewed old records the patient had been admitted on December 27 for similar and then left AMA at that time she had been tested for possible PID cultures for gonorrhea and chlamydia came back normal as well as genital culture trichomonas to come back positive patient not been treated Discussed with patient her previous visit discussed her previous drug use she states she has not had fentanyl since December 18. She denies any vaginal discharge Discussed ERUM Giang for Dr. Renee agrees with admission. We discussed previous trichomonas we will send a urine trichomonas at this time which is a send out and then will follow and start patient on medications p.o. as outpatient when she is able to tolerate p.o. Discussed with patient and family re
[2022-01-12] MEDS: ONDANSETRON INJ 4 MG/2 ML VIAL IV PUSH ×2 (14:10→21:53)
[2022-01-12] MEDS: FAMOTIDINE 20 MG/2 ML VIAL IV PUSH (14:10)
[2022-01-12] MEDS: KETOROLAC 30 MG/ML VIAL (*BKC) IV PUSH (14:10)
[2022-01-12] MEDS: SODIUM CHLORIDE 0.9% IV 1,000 ML 999 ML IV CONT ×2 (14:10→14:52)
[2022-01-12 14:11] LABS: INR 1.1; Prothrombin Time 13.8 Seconds (11.1-14.7)
[2022-01-12 14:12] LABS: Partial Thromboplastin Time 26.4 SECONDS (22.3-36.8)
[2022-01-12 14:14] LABS: Troponin I < 0.012 ng/mL (0.000-0.034)
[2022-01-12 14:14] LABS: Add Urine Microscopic? YES; Appearance Urine Cloudy (Clear); Bilirubin Urine 1+ (Negative); Blood Urine Negative (Negative); Color Urine Yellow (Yellow); Glucose Urine UA Negative (Negative); Ketones Urine 2+ mg/dL (Negative); Leukocyte Esterase Ur 2+ LEU/UL (Negative); Nitrate Urine Negative (Negative); Protein Urine 1+ mg/dL (Negative); pH Urine 8.5 (5.0-9.0)
[2022-01-12 14:20] LABS: Alanine Aminotransferase 11 U/L (6-35); Albumin Level 4.4 g/dL (3.5-5.1); Alkaline Phosphatase 73 U/L (38-126); Anion Gap 6 mmol/L (8-16); Aspartate Amino Transferase 20 U/L (14-36); Bilirubin,Total 0.3 mg/dL (0.2-1.3); Blood Urea Nitrogen 10 mg/dL (7-17); Calcium 9.4 mg/dL (8.4-10.2); Carbon Dioxide 27 mmol/L (22-30); Chloride 110 mmol/L (98-107); Estimated CRCL calculation 70 ml/min; Estimated Glomerular Filt Rate > 60; Glucose 124 mg/dL (65-110); Lipase 69 U/L (23-300); Potassium 3.8 mmol/L (3.4-5.0); Sodium 143 mmol/L (137-145)
[2022-01-12 14:23] LABS: Mucus Urine Moderate /lpf; RBC Urine 21-50 /hpf (0-2); Squamous Epithelial Cell Urine Many /hpf (Few); WBC Urine 16-20 /hpf
[2022-01-12 14:27] LABS: Bacteria Urine Trace /hpf
--- NOTE | 2022-01-12 14:40 | PC.NURSE ---
pt requested more nausea medications, erp aware.
[2022-01-12] MEDS: PROMETHAZINE HCL 25 MG/ML AMPUL 12.5 MG IV PUSH ×2 (14:52→23:46)
--- NOTE | 2022-01-12 15:48 | PC.NURSE ---
mother updated on pt. erp is aware of pts request for pain meds.
[2022-01-12] MEDS: MORPHINE SULFATE (*CRX) 4 MG/ML INJ IV PUSH (15:51)
[2022-01-12] MEDS: LORazepam INJ (*CRX) 2 MG/ML VIAL 0.5 MG IV PUSH (16:30)
--- NOTE | 2022-01-12 16:35 | PC.NURSE ---
Pt continues to report cramping type pain to stomach with emesis. ERP angela in to re-evaluate pt and new orders received. pt given additional warm blanket and all needs addressed. Will continue to monitor pts s/s and report abnormal findings.
--- NOTE | 2022-01-12 16:48 | PC.NURSE ---
Spoke with Leelee in lab. They are to add on trich to UA specimen.
[2022-01-12 18:04] LABS: Troponin I < 0.012 ng/mL (0.000-0.034)
[2022-01-12] MEDS: SODIUM CHLORIDE 0.9% IV 1,000 ML 125 ML IV CONT (18:13)
--- NOTE | 2022-01-12 18:30 | PM.IMHP ---
H&P: HPI History of Present Illness Date/Time: 01/12/22 18:30 Chief Complaint: Nausea, vomiting, abdominal pain. Narrative: This is a 31-year-old female with history of bipolar disorder and opiate abuse who presented to the emergency department for evaluation nausea, vomiting, and abdominal pain. She has not been feeling well for several days with sharp and occasionally cramping periumbilical pain, persistent nausea, and multiple episodes of emesis per day. She has not been able to keep down solids or liquids and she is feeling weak and dehydrated. CT of the abdomen and pelvis was unremarkable aside from a 2 mm nonobstructing right kidney stone. Looking back through her chart, she has been hospitalized and seen in the emergency department with similar symptoms on several different occasions. Most recently she was admitted on 12/27/2021 overnight for similar symptoms though she left against medical advice. Later was discover that she came back positive for Trichomonas but she was never treated for that though she states she does not really have symptoms at this time. At the time my evaluation, she is feeling a bit better after receiving IV fluids, antiemetics, and pain medications. She denies fever, chills, and sweats. She also denies sick contacts. She has had some loose stools per those have improved. She has a history of fentanyl abuse but has not used for well over a month and she denies that these symptoms could be related to withdrawal. She denies dysuria and vaginal discharge. Review of Systems Review of Systems: Twelve systems were reviewed and are negative except for as per HPI. [facility] Past Medical History Medical History (Updated 01/12/22 @ 21:35 by Padmaja Álvarez PA-C) Bipolar disorder Depression Sexually transmitted infection Surgical History Surgical History No pertinent past surgical history Family History Family History Mother Heart disease Liver disease Father Hypertension Social History Social History (Updated 01/12/22 @ 21:29 by Padmaja Álvarez PA-C) Social History: Surrogate decision maker: Leena Gilmore, mother. Code status: Full code. Smoking packs per day: 0.5 Smoking cigarettes per day: 10.0 Years smoked: 11 Smoking pack-years: 5.50 Tobacco type: cigarettes Alcohol intake: never Substance use: former Substance use type: opiates Last use: November 2021 Spiritual care concerns: No Meds Home Medications and Allergies Home Medications Medication Instructions Recorded Confirmed Type bupropion HCl 150 mg 24 hr tablet, 150 mg PO DAILY 02/12/21 12/27/21 History extended release dicyclomine 20 mg tablet 20 mg PO QID #20 tabs 12/15/21 12/27/21 Rx dextroamphetamine-amphetamine 5 mg 5 mg PO BID 12/27/21 12/27/21 History tablet quetiapine 100 mg tablet 100 mg PO HS 12/27/21 12/27/21 History Allergies Allergy/AdvReac Type Severity Reaction Status Date / Time ciprofloxacin Allergy Unknown Hives Verified 12/15/21 10:20 sulfamethoxazole Allergy Hives Verified 12/15/21 10:20 [From Bactrim] trimethoprim [From Bactrim] Allergy Hives Verified 12/15/21 10:20 Vital Signs Vital Signs - 24 hr 01/12/22 13:15 01/12/22 13:57 01/12/22 13:59 Temperature 97.7 F Pulse Rate 102 H 93 96 Respiratory Rate 16 13 16 Blood Pressure 149/110 H 143/97 H Pulse Oximetry 100 100 100 Oxygen Delivery Room Air 01/12/22 14:00 01/12/22 14:01 01/12/22 14:27 Temperature Pulse Rate 94 91 Respiratory Rate 13 15 Blood Pressure 138/98 H Pulse Oximetry 100 100 100 Oxygen Delivery 01/12/22 14:46 01/12/22 15:02 01/12/22 16:43 Temperature Pulse Rate 92 98 78 Respiratory Rate 24 H 18 Blood Pressure 142/88 H 147/100 H Pulse Oximetry 98 97 Oxygen Delivery 01/12/22 17:52 Temperature Pulse Rate 78 Respiratory Rate 18 Blood Press
--- NOTE | 2022-01-12 18:37 | PC.NURSE ---
This patient, Mercy Walter, was admitted to Medical Room 259-. Patient/family oriented to hospital policies and general routines including ID bracelet, bed and alarms, visiting hours, pain management, procedures, bathroom and other care routines, personal items, smoking policy, room service/diet, and visiting hours. Information on how to activate the Rapid Response Team has been discussed. Patient/Family are encouraged to report perceived risks to care and to ask questions if they do not understand what they are told or what they should do.
[2022-01-12 23:11] LABS: Troponin I < 0.012 ng/mL (0.000-0.034)
[2022-01-13] MEDS: ONDANSETRON INJ 4 MG/2 ML VIAL IV PUSH ×2 (01:45→06:57)
[2022-01-13 04:50] LABS: Basophils Percent Auto 0.2 % (0.2-1.2); Hematocrit 42.1 % (37.0-47.0); Hemoglobin 13.1 g/dL (12.0-15.0); Immature Granulocyte Absolute 0.02 K/mm3 (0.00-0.031); Immature Granulocyte Percent A 0.3 % (0-0.5); Lymphocytes Absolute Auto 0.86 K/mm3 (0.9-3.2); Lymphocytes Percent Auto 13.1 % (18.3-44.2); Mean Corpuscular HGB Conc 31.1 g/dl (32-36); Mean Corpuscular Hemoglobin 30.8 pg (26-34); Mean Corpuscular Volume 99.1 fl (80-100); Mean Platelet Volume 9.2 fl (7.4-10.4); Monocytes Absolute Auto 0.2 K/mm3 (0.1-0.6); Monocytes Percent Auto 2.7 % (2.6-8.5); Neutrophils Absolute Auto 5.5 K/mm3 (1.3-6.7); Neutrophils Percent Auto 83.7 % (45.5-73.1); Platelet Count Result 381 k/mm3 (150-375); Red Blood Count 4.25 M/mm3 (4.2-5.4); Red Cell Distribution Width 15.6 % (11.5-14.5); White Blood Count 6.6 K/mm3 (4.5-10.0)
[2022-01-13 05:08] LABS: Alanine Aminotransferase 12 U/L (6-35); Albumin Level 4.4 g/dL (3.5-5.1); Alkaline Phosphatase 63 U/L (38-126); Anion Gap 13 mmol/L (8-16); Aspartate Amino Transferase 18 U/L (14-36); Bilirubin,Total 0.5 mg/dL (0.2-1.3); Blood Urea Nitrogen 11 mg/dL (7-17); Calcium 9.3 mg/dL (8.4-10.2); Carbon Dioxide 20 mmol/L (22-30); Chloride 107 mmol/L (98-107); Estimated CRCL calculation 79 ml/min; Estimated Glomerular Filt Rate > 60; Glucose 97 mg/dL (65-110); Magnesium 1.6 mg/dL (1.6-2.3); Potassium 3.8 mmol/L (3.4-5.0); Sodium 140 mmol/L (137-145)
[2022-01-13 06:00] VITALS: BP 141/76; PULSE 77; RESP 21; TEMP 36.8; O2SAT 100
[2022-01-13] MEDS: FAMOTIDINE 20 MG/2 ML VIAL IV PUSH (07:33)
[2022-01-13 08:43] LABS: Amphetamine Screen Urine Negative (Negative); Barbiturate Screen Urine Negative (Negative); Benzodiazepines Screen Urine Negative (Negative); Cannabinoid Screen Urine Negative (Negative); Cocaine Screen Urine Negative (Negative); Methadone Screen Urine Negative (Negative); Opiate Screen Urine Negative (Negative); Phencyclidine Screen Urine Negative (Negative)
[2022-01-13] MEDS: HYOSCYAMINE SULFATE 0.0625 MG TABLET PO (09:09)
--- NOTE | 2022-01-13 11:20 | PC.NURSE ---
Dr Pryor notified of pt leaving AMA
--- NOTE | 2022-01-13 13:22 | PM.DS ---
DS: Admitting Diagnosis Discharge Date 01/13/22 Admitting Diagnosis nausea, vomiting abdominal pain. DS: Discharge Diagnosis Discharge Diagnosis (1) Intractable vomiting with nausea: Code(s): R11.2 - Nausea with vomiting, unspecified Status: Acute (2) Abdominal pain: Code(s): R10.9 - Unspecified abdominal pain Status: Acute (3) Abnormal urinalysis: Code(s): R82.90 - Unspecified abnormal findings in urine Status: Acute (4) Elevated blood pressure reading: Code(s): R03.0 - Elevated blood-pressure reading, without diagnosis of hypertension Status: Acute DS: Summary Hospital Course Reason for hospitalization: 31yo female with bipolar disorder and hx of opiate abuse here for nausea, vomiting and abdominal pain. Please see H&P for details. Hospital Course: Patient presented to the emergency department for evaluation nausea, vomiting and abdominal pain. CT of the abdomen pelvis was unremarkable. Chest x-ray was clear. Troponin were negative x3. CBC was normal. She denies that these are symptoms related to withdrawal. States that she has not used narcotics for over a month. UDS was negative here. She was noted to have a positive Trichomonas test prior to this admission that was never treated. She was offered treatment here but declined and states that she will see her sheet metal supervisor doctor for appropriate treatment. She was strongly encouraged to have this addressed. Patient was admitted and started on IV fluids. Pepcid was added. Her nausea and vomiting improved. We started her on a full liquid diet. I spoke with the patient in the morning and she was consider signing out against medical advice. She was advised against this. I was called later in the day was told that patient has signed the paperwork and has left against medical advice. Time Spent with Patient Time attestation: Total time spent providing and/or coordinating discharge services: Exam Narrative: AF 98.3 141/76 77 21 100% ra Gen - NARD Chest - CTA bilaterally, nml RR CV - RRR S1/S2 Abd - Soft, diffusely tender with some voluntary guarding Ext - No pedal edema Psych - Nml mood and affect Skin - Warm and dry DS: Data Data Completed and Pending Labs on day of discharge: Labs from last 24 hours 01/13/22 01/13/22 01/12/22 04:46 04:46 22:37 WBC 6.6 RBC 4.25 Hgb 13.1 Hct 42.1 MCV 99.1 MCH 30.8 MCHC 31.1 L RDW 15.6 H Plt Count 381 H MPV 9.2 Immature Gran % (Auto) 0.3 Neut % (Auto) 83.7 H Lymph % (Auto) 13.1 L [place] % (Auto) 2.7 Eos % (Auto) 0.0 Baso % (Auto) 0.2 Lymph # (Auto) 0.86 L [place] # (Auto) 0.2 Eos # (Auto) 0.0 Baso # (Auto) 0.0 Abs Immat Gran (auto) 0.02 Absolute Neuts (auto) 5.5 Absolute Nucleated RBC 0.0 Nucleated RBC % 0.0 PT INR APTT Sodium 140 Potassium 3.8 Chloride 107 Carbon Dioxide 20 L Anion Gap 13 BUN 11 Creatinine 0.70 Estim Creat Clear Calc 79 Estimated GFR > 60 Glucose 97 Calcium 9.3 Magnesium 1.6 Total Bilirubin 0.5 AST 18 ALT 12 Alkaline Phosphatase 63 Troponin I < 0.012 Total Protein 8.0 Albumin 4.4 Lipase Urine Color Urine Appearance Urine pH Ur Specific [place] Urine Protein Urine Glucose (UA) Urine Ketones Ur Blood (Man) Urine Nitrate Urine Bilirubin Urine Urobilinogen Leukocyte Esterase Rfl Urine RBC Urine WBC Ur Squamous Epith Cells Urine Bacteria Urine Mucus Urine Opiates Screen Urine Methadone Screen Ur Barbiturates Screen Ur Phencyclidine Scrn Ur Amphetamine Screen U Benzodiazepines Scrn Urine Cocaine Screen U Cannabinoids Screen T. vaginalis Amp RNA 01/12/22 01/12/22 01/12/22 17:38 14:00 14:00 WBC RBC Hgb Hct MCV MCH MCHC RDW Plt Count MPV Immature Gran % (Auto)
--- NOTE | 2022-01-15 06:20 | PC.NURSE ---
Urine cx is negative. Dr. Konstantin tam.
--- NOTE | 2022-01-15 09:34 | PC.NURSE ---
Trich is positive. Notified Dr. Pryor regarding pt positive trich. Patient was offered treatment prior to being dc. Pt refused. Stated she will see her CORNETIST for treatment.
== END 2022-01-13 11:20 | disposition left against medical advice (07) ==
LOC: ANHED 16:50 → ANH2MED 17:38
PROVIDERS: Physician Assistant; Admitting Provider Student in an Organized Health Care Education/Training Program; Emergency Provider Emergency Medicine; Visit Provider Student in an Organized Health Care Education/Training Program
DX: R10.9 Unspecified abdominal pain (principal); R11.2 Nausea with vomiting, unspecified; R03.0 Elevated blood-pressure reading, without diagnosis of hypertension; R82.90 Unspecified abnormal findings in urine; F31.9 Bipolar disorder, unspecified; F17.210 Nicotine dependence, cigarettes, uncomplicated; F11.10 Opioid abuse, uncomplicated
CPT/HCPCS: 36415; 71046; 74176; 80053; 80307; 81001; 81025; 83690; 83735; 84484; 85025; 85610; 85730; 87086; 87661; 93005; 96361; 96365; 96375; 96376; 99285; A9270; G0378; G0379; J0131; J0696; J1885; J2060; J2270; J2405; J2550; J7030

== ENCOUNTER 2022-11-26 19:22 | Emergency (ER) | payer OTHER, SELFPAY ==
[2022-11-26 19:58] VITALS: BP 130/86; PULSE 93; RESP 18; TEMP 36.3; O2SAT 100
--- NOTE | 2022-11-26 21:03 | PC.NURSE ---
Patient and her mother approached intake desk and informed telegraphic typewriter installer that patient wanted her IV removed and wanted to leave due to the wait time. Food Assembler explained risk and benefits, patient still reported she wanted to leave. Food Assembler removed patient's IV and patient wheeled to her mother car's. Patient alert and able to get into her mothers car.
== END 2022-11-26 21:03 | disposition left against medical advice (07) ==
LOC: ANHED 21:13
DX: R11.10 Vomiting, unspecified (principal)
CPT/HCPCS: 99199

== ENCOUNTER 2023-07-19 14:01 | Emergency (ER) | payer OTHER, SELFPAY ==
--- NOTE | ~2023-07-19 | CT_ITS ---
EXAMINATION: CT abdomen pelvis w con DATE: 07/19/2023 18:39 INDICATION: Abdominal pain and vomiting TECHNIQUE: Computed tomography (CT) of the abdomen and pelvis was performed with 100 CC Omnipaque 350 intravenous contrast. Automated exposure control and iterative reconstruction technique were employe d. Exam dose: 522.82 mGy-cm total exam DLP. COMPARISON: 01/12/2022 CT abdomen pelvis FINDINGS: Examination is limited by motion. Cardiomegaly. No pericardial or pleural effusion. The liver, spleen, pancreas, and adrenal glands and kidneys appear normal. The gallbladder is present . No gallbladder wall thickening or pericholecystic fluid or fat stranding. No bile duct or pancreati c duct dilatation. No renal mass lesion or urinary tract calculus or hydroureteronephrosis is detected. The urinary blad syl is unremarkable. Retroverted uterus. Normal caliber and minimal calcification of the abdominal aorta. No intraperitoneal or retroperitonea l or pelvic mass lesion or adenopathy or ascites is detected. No evidence of appendicitis. No bowel obstruction, bowel wall thickening, pneumatosis or intraperiton eal free air. Included skeletal structures are unremarkable. IMPRESSION: Cardiomegaly Reviewed, dictated and finalized at Location [facility]. Reviewed, dictated and finalized at location A. GER PHILOSOPHY IMPRESSION: Cardiomegaly
--- NOTE | ~2023-07-19 | XR_ITS ---
EXAMINATION: XR chest 2V DATE: 07/19/2023 14:48 INDICATION: Epigastric pain TECHNIQUE: PA and lateral views of the chest are obtained. COMPARISON: 01/12/2022 FINDINGS: The lungs are free of acute opacities. No pleural effusion or pneumothorax. The cardiomedia stinal silhouette is normal. The visualized bones and soft tissues are unremarkable. IMPRESSION: 1. No acute cardiopulmonary abnormality. Reviewed, dictated and finalized at location B. RPILLAR OPERATOR
--- NOTE | 2023-07-19 14:02 | ECG_ITS ---
Measurements Intervals [place] Rate: 89 P: 69 NV: 174 QRS: 68 QRSD: 74 T: 48 QT: 365 QTc: 446 Interpretive Statements SINUS RHYTHM POSSIBLE LEFT ATRIAL ENLARGEMENT [-0.1mV P WAVE IN V1/V2] NONSPECIFIC T-WAVE ABNORMALITY ABNORMAL ECG COMPARED TO ECG 01/12/2022 13:29:18 NO SIGNIFICANT CHANGE Electronically Signed On 07-19-2023 15:28:52 MUTUAL FUND MANAGER by Guevara Santana M.D.
[2023-07-19 14:18] LABS: Basophils Percent Auto 0.2 % (0.2-1.2); Eosinophils Absolute Auto 0.1 K/mm3 (0-0.3); Eosinophils Percent Auto 1.5 % (0-4.4); Hematocrit 40.8 % (37.0-47.0); Hemoglobin 13.6 g/dL (12.0-15.0); Immature Granulocyte Absolute 0.03 K/mm3 (0.00-0.031); Immature Granulocyte Percent A 0.4 % (0-0.5); Lymphocytes Absolute Auto 0.84 K/mm3 (0.9-3.2); Lymphocytes Percent Auto 9.8 % (18.3-44.2); Mean Corpuscular HGB Conc 33.3 g/dl (32-36); Mean Corpuscular Hemoglobin 30.5 pg (26-34); Mean Corpuscular Volume 91.5 fl (80-100); Mean Platelet Volume 9.3 fl (7.4-10.4); Monocytes Absolute Auto 0.3 K/mm3 (0.1-0.6); Monocytes Percent Auto 3.4 % (2.6-8.5); Neutrophils Absolute Auto 7.2 K/mm3 (1.3-6.7); Neutrophils Percent Auto 84.7 % (45.5-73.1); Platelet Count Result 284 k/mm3 (150-375); Red Blood Count 4.46 M/mm3 (4.2-5.4); Red Cell Distribution Width 12.5 % (11.5-14.5); White Blood Count 8.5 K/mm3 (4.5-10.0)
[2023-07-19 14:28] LABS: INR 0.9; Prothrombin Time 12.6 Seconds (11.1-14.7)
[2023-07-19 14:30] LABS: Partial Thromboplastin Time 27.5 SECONDS (22.3-36.8)
[2023-07-19 14:34] LABS: Alanine Aminotransferase 14 U/L (6-35); Albumin Level 4.1 g/dL (3.5-5.1); Alkaline Phosphatase 67 U/L (38-126); Anion Gap 10 mmol/L (8-16); Aspartate Amino Transferase 24 U/L (14-36); Bilirubin,Total 0.4 mg/dL (0.2-1.3); Blood Urea Nitrogen 9 mg/dL (7-17); Calcium 9.3 mg/dL (8.4-10.2); Carbon Dioxide 22 mmol/L (22-30); Chloride 108 mmol/L (98-107); Estimated CRCL calculation 102 ml/min; Estimated Glomerular Filt Rate > 60; Glucose 123 mg/dL (65-110); Lipase 76 U/L (23-300); Potassium 3.4 mmol/L (3.4-5.0); Sodium 140 mmol/L (137-145)
[2023-07-19 14:46] LABS: Troponin I < 0.012 ng/mL (0.000-0.034)
[2023-07-19 16:52] VITALS: BP 119/90; PULSE 76; RESP 22; O2SAT 100
--- NOTE | 2023-07-19 16:58 | ECG_ITS ---
Measurements Intervals [place] Rate: 72 P: 51 AK: 146 QRS: 73 QRSD: 81 T: -10 QT: 387 QTc: 426 Interpretive Statements SINUS RHYTHM NONSPECIFIC T-WAVE ABNORMALITY COMPARED TO ECG 07/19/2023 14:10:10 NO SIGNIFICANT CHANGES Electronically Signed On 07-20-2023 8:58:52 ROLL UP HELPER by Maci Cote M.D.
[2023-07-19] MEDS: SODIUM CHLORIDE 0.9% IV 1,000 ML 999 ML IV CONT ×2 (17:15→18:48)
[2023-07-19] MEDS: ONDANSETRON INJ 4 MG/2 ML VIAL IV PUSH (17:16)
[2023-07-19] MEDS: PANTOPRAZOLE SODIUM IV 40 MG VIAL IV PUSH (17:16)
--- NOTE | 2023-07-19 17:21 | ED.ABDPAIN ---
HPI - Abdominal Pain General Chief Complaint: Chest Pain Stated Complaint: Vomiting, ABD Pain, Chest Pain Time Seen by Provider: 07/19/23 17:06 Source: patient Mode of arrival: wheelchair Limitations: no limitations History of Present Illness HPI narrative: This is a 33 year old female that presents to the emergency department for abdominal pain, nausea and vomiting. Ongoing over the last couple of hours. Associated with vomiting and diarrhea. Also reports substernal chest pain. Denies fevers, cough, or shortness of breath. Related Data Home Medications Medication Instructions Recorded Confirmed bupropion HCl 150 mg 24 hr tablet, 150 mg PO DAILY 02/12/21 01/12/22 extended release dextroamphetamine-amphetamine 5 mg 5 mg PO BID 12/27/21 01/12/22 tablet quetiapine 100 mg tablet 100 mg PO HS 12/27/21 01/12/22 Allergies Allergy/AdvReac Type Severity Reaction Status Date / Time ciprofloxacin Allergy Unknown Hives Verified 11/26/22 19:23 sulfamethoxazole Allergy Hives Verified 11/26/22 19:23 [From Bactrim] trimethoprim [From Bactrim] Allergy Hives Verified 11/26/22 19:23 Review of Systems Review of Systems: CONSTITUTIONAL: Denies fever ENT: Denies rhinorrhea, congestion CARDIOVASCULAR: Reports chest pain. Denies edema. RESPIRATORY: Denies cough or dyspnea. GASTROINTESTINAL: Reports abdominal pain, nausea, vomiting, and diarrhea. All systems reviewed & are unremarkable except as noted in HPI and below PMFSH Past Medical History Medical History (Updated 07/19/23 @ 21:03 by Patricia Fernández PA-C) Bipolar disorder Depression Sexually transmitted infection Surgical History Surgical History No pertinent past surgical history Family History Family History Mother Heart disease Liver disease Father Hypertension Social History Social History (Updated 01/12/22 @ 21:29 by Padmaja Álvarez PA-C) Social History: Surrogate decision maker: Leena Gilmore, mother. Code status: Full code. Smoking packs per day: 0.5 Smoking cigarettes per day: 10.0 Years smoked: 11 Smoking pack-years: 5.50 Tobacco type: cigarettes Alcohol intake: never Substance use: former Substance use type: opiates Last use: November 2021 Spiritual care concerns: No Exam Narrative: GENERAL: Well-appearing, well-nourished, and in no acute distress. HEAD: Normocephalic, atraumatic. EYES: EOMI. ENT: Nares clear, no rhinorrhea or epistaxis. Mucous membranes moist. Oropharynx without tonsillar hypertrophy exudate or other lesions. Poor dentition NECK: Supple. No adenopathy or masses. CHEST: Clear to auscultation. No respiratory distress. No wheezes rales or rhonchi HEART: Regular rate and rhythm. No murmur heard. Normal peripheral pulses. ABDOMEN: Soft, nondistended, normal active bowel sounds. Tender to palpation in the epigastrium, without guarding EXTREMITIES: Normal range of motion. No edema. SKIN: Warm, dry, no rash. NEURO: No focal deficits. Alert and oriented x3. PSYCH: Normal mood and affect Course Course Emergency Course: Patient updated on her workup. Continues to have nausea and vomiting after several antiemetics Vital Signs Vital signs: Vital Signs Pulse Rate 76 07/19/23 16:52 Respiratory Rate 22 H 07/19/23 16:52 Blood Pressure 119/90 07/19/23 16:52 Pulse Oximetry 100 07/19/23 16:52 Temperature 98.0 F 07/19/23 21:05 Pulse Rate 76 07/19/23 16:52 Respiratory Rate 22 H 07/19/23 16:52 Blood Pressure 119/90 07/19/23 16:52 Pulse Oximetry 100 07/19/23 16:52 MDM - Abdominal Pain MDM Narrative Medical decision making narrative: Patient presents to the emergency department for abdominal discomfort, nausea and vomiting. She is afebrile and nontoxic appearing. Her vitals are stable. CBC metabolic panel without concerning findings. Ur
[2023-07-19 17:40] LABS: Troponin I < 0.012 ng/mL (0.000-0.034)
[2023-07-19 17:55] LABS: Influenza A QL RT-PCR Negative (Negative); Influenza B QL RT-PCR Negative (Negative); SARS-CoV-2 RNA PCR Negative (Negative)
--- NOTE | 2023-07-19 17:55 | PC.NURSE ---
patient unable to give urine sample at this time. refusing to try to give sample. Patricia DANIELSON notified of patient morning in bed due to pain and refusing to provide urine sample. Patricia DANIELSON to speak with patient.
[2023-07-19 18:30] LABS: Appearance Urine Turbid (Clear); Bacteria Urine 4+ /hpf; Bilirubin Urine Negative (Negative); Blood Urine Negative (Negative); Color Urine Yellow (Yellow); Glucose Urine UA Negative (Negative); Ketones Urine 1+ mg/dL (Negative); Leukocyte Esterase Ur 1+ LEU/UL (Negative); Need Manual Microscopic Reviewed; Nitrate Urine Negative (Negative); Protein Urine 1+ mg/dL (Negative); Squamous Epithelial Cell Urine Many /hpf (Few); WBC Urine 51-100 /hpf; pH Urine >=9.0 (5.0-9.0)
[2023-07-19 18:31] LABS: Add Urine Microscopic? YES
[2023-07-19] MEDS: diphenhydrAMINE HCl INJ 50 MG/ML VIAL 25 MG IV PUSH (18:47)
[2023-07-19] MEDS: METOCLOPRAMIDE HCL INJ 10 MG/2 ML VIAL IV PUSH (18:47)
[2023-07-19 19:16] LABS: Amphetamine Screen Urine Negative (Negative); Barbiturate Screen Urine Negative (Negative); Benzodiazepines Screen Urine Negative (Negative); Cannabinoid Screen Urine Negative (Negative); Cocaine Screen Urine Negative (Negative); Methadone Screen Urine Negative (Negative); Opiate Screen Urine Negative (Negative); Phencyclidine Screen Urine Negative (Negative)
[2023-07-19] MEDS: KETOROLAC 15 MG/ML VIAL (*BKC) IV PUSH (20:19)
[2023-07-19 20:40] LABS: NT Pro B Type Natriuretic Pept 114 pg/mL (19.9-100)
[2023-07-19 21:05] VITALS: TEMP 36.7
--- NOTE | 2023-07-19 21:13 | PM.IMHP ---
H&P: HPI History of Present Illness Date/Time: 07/19/23 21:13 [facility] Past Medical History Medical History (Updated 07/19/23 @ 21:03 by Patricia Fernández PA-C) Bipolar disorder Depression Sexually transmitted infection Surgical History Surgical History No pertinent past surgical history Family History Family History Mother Heart disease Liver disease Father Hypertension Social History Social History (Updated 01/12/22 @ 21:29 by Padmaja Álvarez PA-C) Social History: Surrogate decision maker: Leena Gilmore, mother. Code status: Full code. Smoking packs per day: 0.5 Smoking cigarettes per day: 10.0 Years smoked: 11 Smoking pack-years: 5.50 Tobacco type: cigarettes Alcohol intake: never Substance use: former Substance use type: opiates Last use: November 2021 Spiritual care concerns: No Meds Home Medications and Allergies Home Medications Medication Instructions Recorded Confirmed Type bupropion HCl 150 mg 24 hr tablet, 150 mg PO DAILY 02/12/21 01/12/22 History extended release dicyclomine 20 mg tablet 20 mg PO QID #20 tabs 12/15/21 01/12/22 Rx dextroamphetamine-amphetamine 5 mg 5 mg PO BID 12/27/21 01/12/22 History tablet quetiapine 100 mg tablet 100 mg PO HS 12/27/21 01/12/22 History Allergies Allergy/AdvReac Type Severity Reaction Status Date / Time ciprofloxacin Allergy Unknown Hives Verified 11/26/22 19:23 sulfamethoxazole Allergy Hives Verified 11/26/22 19:23 [From Bactrim] trimethoprim [From Bactrim] Allergy Hives Verified 11/26/22 19:23 Vital Signs Vital Signs - 24 hr 07/19/23 16:52 07/19/23 21:05 Temperature 98.0 F Pulse Rate 76 Respiratory Rate 22 H Blood Pressure 119/90 Pulse Oximetry 100 H&P: Results Labs Labs: Short CBC 07/19/23 Range/Units 14:12 WBC 8.5 (4.5-10.0) K/mm3 Hgb 13.6 (12.0-15.0) g/dL Hct 40.8 (37.0-47.0) % Plt Count 284 (150-375) k/mm3 BMP 07/19/23 14:12 Sodium 140 Potassium 3.4 Chloride 108 H Carbon Dioxide 22 BUN 9 Creatinine 0.60 L Glucose 123 H Calcium 9.3 Cardiac Enzymes 07/19/23 07/19/23 Range/Units 14:12 17:04 Troponin I < 0.012 < 0.012 (0.000-0.034) ng/mL Liver Function 07/19/23 Range/Units 14:12 Total Bilirubin 0.4 (0.2-1.3) mg/dL AST 24 (14-36) U/L ALT 14 (6-35) U/L Alkaline Phosphatase 67 (38-126) U/L Albumin 4.1 (3.5-5.1) g/dL Urine 07/19/23 Range/Units 18:03 Urine Color Yellow (Yellow) Urine Appearance Turbid H (Clear) Urine pH >=9.0 H (5.0-9.0) Ur Specific [place] 1.020 (1.001-1.035) Urine Protein 1+ H (Negative) mg/dL Urine Glucose (UA) Negative (Negative) mg/dL
== END 2023-07-19 21:45 | disposition left against medical advice (07) ==
PROVIDERS: Emergency Medicine; Emergency Provider Physician Assistant
DX: N39.0 Urinary tract infection, site not specified (principal); R11.2 Nausea with vomiting, unspecified; Z20.822 Contact with and (suspected) exposure to COVID-19; F31.9 Bipolar disorder, unspecified; I51.7 Cardiomegaly; R94.31 Abnormal electrocardiogram [ECG] [EKG]
CPT/HCPCS: 36415; 71046; 74177; 80053; 80307; 81001; 81025; 83690; 83880; 84484; 85025; 85610; 85730; 87086; 87088; 87636; 93005; 96361; 96365; 96375; 99284; C9113; J0696; J1200; J1885; J2405; J2765; J7030; Q9967